=== PATIENT | female | born 1985 | race Caucasian/White ===

== ENCOUNTER 2021-06-05 16:08 | Emergency (ER) | payer MEDICARE, MEDICAID, SELFPAY ==
[2021-06-05 16:28] VITALS: BP 117/77; PULSE 77; RESP 16; TEMP 36.9; O2SAT 96; BMI 47.2
--- NOTE | 2021-06-05 16:36 | XR_ITS ---
PROCEDURE: XR KNEE LT 3V CLINICAL INDICATION: FALL Posttraumatic pain COMPARISON: No exams were available for comparison FINDINGS: No fracture or dislocation. No lytic or blastic change. There is normal mineralization. There are mild osteoarthritic changes of the medial compartment Other findings:None. IMPRESSION: Mild osteoarthritis otherwise negative Dictated by: Maynor Jarrett MD 06/05/2021 16:56 Maynor Jarrett MD in [place] 06/05/2021 16:56
[2021-06-05 17:00] VITALS: BP 117/77; PULSE 77; RESP 16; TEMP 36.9; O2SAT 96; BMI 47.2
--- NOTE | 2021-06-05 17:36 | HMH.EDUTC ---
[facility] [place] Clinical Impression: Knee sprain Qualifiers: Encounter type: initial encounter Involved ligament of knee: other ligament Laterality: left Qualified Code(s): S83.8X2A - Sprain of other specified parts of left knee, initial encounter Disposition: Home, Self-Care Condition on Discharge: Good Instructions: How To Perform RICE (Rest, Ice, Compress, Elevate), How to Use Crutches, How to Use a Knee Immobilizer Additional Instructions: *weight bearing as tolerated *RICE, Rest the extremity, Ice 15-20 minutes 3-4 times daily, Compress- wear the joseph wrap as discussed as much as possible to help reduce swelling and pain, Elevate the extremity when at rest *Joseph wrap is for support and help control swelling, use it except in the shower. Be sure that is not to tight but not to loose either *Elevate when resting *Ibuprofen 600-800mg every 6-8 hours as needed for pain an inflammation. If need something more can take Tylenol in between doses of Ibuprofen to help if your doctor has told you that you can take these medications Immediately follow up with your family doctor for new or worsening of symptoms, or no noticeable improvement over the next 3-5 days Follow up with your Family Doctor for further evaluation and examination and testing Follow up with Orthopedics if needed Referrals: Ade Garza [Primary Care Provider] - As needed Time of Disposition: 17:45 Medical Decision Making - Edward Inquiry Pt receiving controlled substance: No Edward was queried for this patient: No Vital Signs: 06/05/21 16:28 06/05/21 17:00 Temperature 98.4 F 98.4 F Temperature Source Oral Oral Pulse Rate [Left Radial] 77 77 Respiratory Rate 16 16 Blood Pressure [Left Arm] 117/77 117/77 Blood Pressure Mean [Left Arm] 90 90 Blood Pressure Source [Left Arm] Automatic Cuff Automatic Cuff Blood Pressure Position [Left Arm] Sitting Sitting 02 Sat by Pulse Oximetry 96 96 Oxygen Delivery Method Room Air Room Air - Radiology Data #1 Image(s): Knee Image Reviewed: Yes I have reviewed radiologist's interpretation IMPRESSION: Mild osteoarthritis otherwise negative [facility] [place] - General Stated complaint: ao 0/30 injured l knee Time Seen by Provider: 06/05/21 17:36 Mode of Arrival: Ambulatory Source of Information: Patient Limitations: No Limitations Description of Symptoms (Recalled from Triage Doc. by RN): Pt c/o L knee pain r/t fall yesterday. Pt reports pain is worse when bearing weight. HEENT Symptoms (Recalled from RN notes): No Resp Symptoms (Recalled from RN notes): No Skin Symptoms (Recalled from RN notes): No MS Symptoms (Recalled from RN notes): Yes Functional Status (Recalled from RN notes): WNL - History of Present Illness Provider Complaint: Patient states that she was fishing yesterday when she was walking on rocks and slipped and fell and twisted left knee State that ever since she has had some swelling and pain in it when she goes to walk States that she came in to get it checked this evening when she was still having pain with walking - Related Data Previous Rx's Medication Instructions Recorded atorvastatin 10 mg tablet 10 mg PO DAILY #30 tab 11/30/19 hydrochlorothiazide 12.5 mg tablet 12.5 mg PO DAILY #30 tab 11/30/19 levothyroxine 50 mcg tablet 50 mcg PO DAILY #30 tab 11/30/19 naproxen 500 mg tablet 500 mg PO BID 30 Days #60 tab 11/30/19 prednisone 20 mg tablet 20 mg PO BID 5 Days #10 tab 11/30/19 Allergies Allergy/AdvReac Type Severity Reaction Status Date / Time codeine Allergy Intermediate Verified 11/30/19 13:38 vancomycin Allergy Intermediate Verified 11/30/19 13:38 SEAFOOD Allergy Mild Uncoded 11/30/19 13:38 PCN (PENICILLIN) Allergy Unknown I-RASH Uncoded 11/30/19 13:38 - Worker's Comp Is this a Worker's Comp case?: No H History - Hepatitis A Screen Drug use history?: No High risk sexual behaviors?: No History of sexually transmitted infection?: No Currently employed?: No [employer]
[2021-06-05 18:00] VITALS: BP 117/77; PULSE 77; RESP 16; TEMP 36.9; O2SAT 96
== END 2021-06-05 18:05 | disposition home or self-care (01) ==
PROVIDERS: Emergency Provider Nurse Practitioner; PCP Nurse Practitioner Family
DX: S83.8X2A Sprain of other specified parts of left knee, initial encounter (principal); W01.0XXA Fall on same level from slipping, tripping and stumbling without subsequent striking against object, initial encounter; Y92.89 Other specified places as the place of occurrence of the external cause; I10 Essential (primary) hypertension; F41.8 Other specified anxiety disorders; E78.5 Hyperlipidemia, unspecified; E03.9 Hypothyroidism, unspecified; Z79.899 Other long term (current) drug therapy
CPT/HCPCS: 29505; G0463; 73562; 99202

== ENCOUNTER 2021-09-30 14:18 | Emergency (ER) | payer MEDICARE, MEDICAID, SELFPAY ==
[2021-09-30 15:40] VITALS: BP 140/84; PULSE 77; RESP 21; TEMP 37; O2SAT 97; BMI 44.1
[2021-09-30 16:06] LABS: UTC Strep Screen (Rapid) Negative (Negative)
--- NOTE | 2021-09-30 16:18 | HMH.EDUTC ---
[facility] [place] Clinical Impression: Ringworm Disposition: Home, Self-Care Condition on Discharge: Good Instructions: DI for Ringworm Additional Instructions: covid swab was sent to lab, call tomorrow for results. self isolate until test results are known to be negative No sign of a bacterial infection. Likely viral. Viruses can take 7-14 days to run their course. Nasal saline and bulb syringe or nose Leatha to remove nasal drainage to help with nasal congestion. Hard to eat, drink, sleep with nasal congestion so important to keep this cleaned out. Monitor temp. Tylenol or Motrin as needed for pain or fever Encourage fluids, water, Gatorade, Powerade, Pedialyte if infant/toddler/child Warm salt water gargles Warm fluids Sore throat lozenges Sleep elevated Humidifier/vaporizer Follow-up immediately for new or worsening symptoms or no noticeable improvement over the next 48-72 hours. contact precautions- apply cream and wash hands Prescriptions: Clotrimazole [Lotrimin AF] 24 gm TP BID 14 Days #24 gm Prescription Printed Referrals: Provider,Referral, MD [Primary Care Provider] - Time of Disposition: 16:38 Medical Decision Making - Edward Inquiry Pt receiving controlled substance: No Vital Signs: 09/30/21 15:40 Temperature 98.6 F Temperature Source Oral Pulse Rate [Right Brachial] 77 Respiratory Rate 21 Blood Pressure [Right Arm] 140/84 Blood Pressure Mean [Right Arm] 102 Blood Pressure Source [Right Arm] Automatic Cuff Blood Pressure Position [Right Arm] Sitting 02 Sat by Pulse Oximetry 97 Oxygen Delivery Method Room Air - Lab Data Lab Results 09/30/21 15:53: Strep Scn Rapid Clinic Negative Orders (Tests/Meds): ORDERS Category Date Time Status Covid-19 Nasal PCR ([facility]) Routine Lab 09/30/21 16:25 Received Strep Screen Confirmation Stat Micro 09/30/21 15:53 Received [facility] [place] - General Chief complaint: [facility] Stated complaint: sore throat, cough Time Seen by Provider: 09/30/21 16:18 Mode of Arrival: Ambulatory Source of Information: Patient Limitations: No Limitations Description of Symptoms (Recalled from Triage Doc. by RN): 36 yr old female presents for C/O COUGH, SORE THROAT, NAUSEA, DIARRHEA, AND RASH TO RIGHT AXILLA and left lower leg X 1 WEEK, mom has flu HEENT Symptoms (Recalled from RN notes): Yes Resp Symptoms (Recalled from RN notes): Yes Skin Symptoms (Recalled from RN notes): No MS Symptoms (Recalled from RN notes): No Functional Status (Recalled from RN notes): WNL - Related Data Previous Rx's Medication Instructions Recorded atorvastatin 10 mg tablet 10 mg PO DAILY #30 tab 11/30/19 hydrochlorothiazide 12.5 mg tablet 12.5 mg PO DAILY #30 tab 11/30/19 levothyroxine 50 mcg tablet 50 mcg PO DAILY #30 tab 11/30/19 naproxen 500 mg tablet 500 mg PO BID 30 Days #60 tab 11/30/19 prednisone 20 mg tablet 20 mg PO BID 5 Days #10 tab 11/30/19 Clotrimazole [Lotrimin AF] 24 gm TP BID 14 Days #24 gm 09/30/21 Allergies Allergy/AdvReac Type Severity Reaction Status Date / Time codeine Allergy Intermediate Verified 11/30/19 13:38 vancomycin Allergy Intermediate Verified 11/30/19 13:38 Fish Containing Products Allergy Verified 09/30/21 16:02 fish derived Allergy Verified 09/30/21 16:02 Penicillins Allergy Verified 09/30/21 16:02 - Worker's Comp Is this a Worker's Comp case?: No [facility] History - Hepatitis A Screen Drug use history?: No High risk sexual behaviors?: No History of sexually transmitted infection?: No Currently employed?: No Childcare worker?: No Do you have indoor plumbing?: Yes Do you have electricity?: Yes Attestation statement:: This patient has been screened for Hepatitis A risk factors. I have reviewed the patient's past medical history: Yes Medical History: Reports:: Anxiety, Asthma, Chronic Obstructive Pulmonary Disease (COPD), Depression, Hyperlipidemia, Hypertension Denies:: Diabetes Mellitus Type 1, Diabetes Me
[2021-09-30 16:42] LABS: UTC Influenza A Antigen Negative (Negative); UTC Influenza B Antigen Negative (Negative)
[2021-09-30 16:44] VITALS: BP 140/84; PULSE 77; RESP 21; TEMP 37; O2SAT 97
== END 2021-09-30 16:48 | disposition home or self-care (01) ==
PROVIDERS: Emergency Provider Nurse Practitioner Family
DX: B35.9 Dermatophytosis, unspecified (principal); R05.1 Acute cough; F41.8 Other specified anxiety disorders; I10 Essential (primary) hypertension; E78.5 Hyperlipidemia, unspecified; Z20.822 Contact with and (suspected) exposure to COVID-19
CPT/HCPCS: G0463; 87804; 87880; 99203; C9803; U0003; U0005

== ENCOUNTER 2021-12-11 14:35 | Emergency (ER) | payer MEDICARE, MEDICAID, SELFPAY ==
[2021-12-11 14:36] VITALS: BP 132/77; PULSE 82; RESP 16; TEMP 36.8; O2SAT 98; BMI 42.3
[2021-12-11 14:47] VITALS: BMI 33.3
--- NOTE | 2021-12-11 14:48 | XR_ITS ---
FINAL REPORT CLINICAL HISTORY: pain/injury. pain on ulnar aspect of wrist. FINDINGS: 3 views of the left wrist were obtained. There is no acute fracture or dislocation. The joint spaces are intact. There is no soft tissue abnormality. IMPRESSION: No acute abnormality. Reviewed, Interpreted and Dictated by Remy Corbin III, MD Transcribed by Say Person Authenticated by Remy Corbin III, MD on 12/11/2021 03:34:55 PM [facility]
--- NOTE | 2021-12-11 15:51 | HMH.EDUTC ---
[facility] [place] Clinical Impression: Left wrist tendonitis Disposition: Home, Self-Care Condition on Discharge: Good Instructions: DI for Tendinitis Additional Instructions: Rest the extremity, apply ice for 15 minutes as tolerated three or four times per day,, Elevate the extremity as tolerated while you are resting. Take ibuprofen for pain. I sent in a prescription to your pharmacy. Follow up with Dr. Ritter (orthopedics). Sometimes there can be fractures that don't show up well on the first set of x-rays. So, you should follow up if you continue to have symptoms. I put in a referral but you need to call his office and schedule an appointment. Follow up with your regular doctor. GO TO THE ER FOR ANY WORSENING SYMPTOMS Prescriptions: Ibuprofen [Ibuprofen 800mg Tablet] 800 mg PO Q8HP PRN #30 tab PRN Reason: Moderate Pain Transmission Status: Received by [facility] Drug Referrals: Ade Garza [Primary Care Provider] - Klever Ritter MD [Staff Physician] - Time of Disposition: 16:24 Medical Decision Making - Medical Records Medical records reviewed: No: I reviewed the patient's medical records. - Edward Inquiry Pt receiving controlled substance: No Vital Signs: 12/11/21 14:36 12/11/21 16:26 Temperature 98.2 F 97.9 F Temperature Source Oral Oral Pulse Rate 80 Pulse Rate [Right] 82 Respiratory Rate 16 16 Blood Pressure 132/70 Blood Pressure [Right Arm] 132/77 Blood Pressure Mean [Right Arm] 95 Blood Pressure Source [Right Arm] Automatic Cuff Blood Pressure Position [Right Arm] Sitting 02 Sat by Pulse Oximetry 98 Oxygen Delivery Method Room Air Room Air - Radiology Data #1 Image(s): Wrist Image Reviewed: Yes I reviewed the patient's radiology image, Yes I have reviewed radiologist's interpretation Preliminary Findings: Normal/NAD, No Fracture Seen FINAL REPORT CLINICAL HISTORY: pain/injury. pain on ulnar aspect of wrist. FINDINGS: 3 views of the left wrist were obtained. There is no acute fracture or dislocation. The joint spaces are intact. There is no soft tissue abnormality. IMPRESSION: No acute abnormality. Reviewed, Interpreted and Dictated by Remy Corbin III, MD Transcribed by Say Person Authenticated by Remy Corbin III, MD on 12/11/2021 03:34:55 PM [facility] HPI - General Stated complaint: left wrist pain, no accident Time Seen by Provider: 12/11/21 15:51 Mode of Arrival: Ambulatory Source of Information: Patient Limitations: No Limitations Description of Symptoms (Recalled from Triage Doc. by RN): PT advises she has been ppicking up stuff today and now her left wrist is hurting, throbbing. HEENT Symptoms (Recalled from RN notes): No Resp Symptoms (Recalled from RN notes): No Skin Symptoms (Recalled from RN notes): No MS Symptoms (Recalled from RN notes): Yes (left wrist pain) Functional Status (Recalled from RN notes): na - History of Present Illness Provider Complaint: She states that she has had left wrist pain for the past 3 days. She denies any known injury. - Related Data Previous Rx's Medication Instructions Recorded atorvastatin 10 mg tablet 10 mg PO DAILY #30 tab 11/30/19 hydrochlorothiazide 12.5 mg tablet 12.5 mg PO DAILY #30 tab 11/30/19 levothyroxine 50 mcg tablet 50 mcg PO DAILY #30 tab 11/30/19 naproxen 500 mg tablet 500 mg PO BID 30 Days #60 tab 11/30/19 prednisone 20 mg tablet 20 mg PO BID 5 Days #10 tab 11/30/19 Benzonatate [Benzonatate 100mg 100 mg PO BID PRN 7 Days #14 cap 09/30/21 cap] Clotrimazole [Lotrimin AF] 24 gm TP BID 14 Days #24 gm 09/30/21 Ibuprofen [Ibuprofen 800mg 800 mg PO Q8HP PRN #30 tab 12/11/21 Tablet] Allergies Allergy/AdvReac Type Severity Reaction Status Date / Time codeine Allergy Intermediate Verified 11/30/19 13:38 vancomycin Allergy Intermediate Verified 11/30/19 13:38 Fish Containing Products Allergy Verified 09/30/21 16:02 fish derive
[2021-12-11 16:26] VITALS: BP 132/70; PULSE 80; RESP 16; TEMP 36.6; O2SAT 98
== END 2021-12-11 16:27 | disposition home or self-care (01) ==
PROVIDERS: Emergency Provider Nurse Practitioner Family; PCP Nurse Practitioner Family
DX: M65.832 Other synovitis and tenosynovitis, left forearm (principal); F41.8 Other specified anxiety disorders; E78.5 Hyperlipidemia, unspecified; I10 Essential (primary) hypertension; E03.9 Hypothyroidism, unspecified; J44.9 Chronic obstructive pulmonary disease, unspecified
CPT/HCPCS: 29125; G0463; 73110; 99212

== ENCOUNTER 2022-07-28 17:58 | Observation (INO) | payer MEDICARE, MEDICAID, SELFPAY ==
[2022-07-28] VITALS (16 sets, daily range): BP systolic 121–145; BP diastolic 43–103; PULSE 70–87; RESP 16–20; TEMP 36.6–43; O2SAT 95–99; BMI 37.4
--- NOTE | 2022-07-28 18:02 | PC.NURSE ---
PT PROVIDING URINE SPECIMEN AT THIS TIME
--- NOTE | 2022-07-28 18:03 | PC.NURSE ---
ED MD AT BEDSIDE
--- NOTE | 2022-07-28 18:07 | CT_ITS ---
PROCEDURE INFORMATION: Exam: CT Abdomen And Pelvis With Contrast Exam date and time: 07/28/2022 6:43 PM Age: 37 years old Clinical indication: Abdominal pain; Generalized; Prior surgery; Surgery date: 6+ months; Surgery type: Gb c sections; Additional info: Abd pain, acute onset TECHNIQUE: Imaging protocol: Computed tomography of the abdomen and pelvis with contrast. Radiation optimization: All CT scans at this facility use at least one of these dose optimization techniques: automated exposure control; mA and/or kV adjustment per patient size (includes targeted exams where dose is matched to clinical indication); or iterative reconstruction. Contrast material: ISOVUE; Contrast volume: 75 ml; Contrast route: IV; COMPARISON: No relevant prior studies available. FINDINGS: Liver: Possible hepatic steatosis. Gallbladder and bile ducts: Gallbladder is absent. Pancreas: Normal. No ductal dilation. Spleen: Normal. No splenomegaly. Adrenal glands: Normal. No mass. Kidneys and ureters: Low attenuation renal lesions measuring up to 12 mm in diameter are incompletely characterized, but are likely cysts. No followup imaging is warranted. Stomach and bowel: Mildly dilated segments of small bowel suggest mild ileus. Colon is collapsed. Appendix: The appendix is obstructed by a calcified appendicolith at the base. The appendix measures 1.5 cm in diameter and there is periappendiceal inflammation. Intraperitoneal space: Small amount of free fluid in the abdomen and pelvis. Vasculature: Unremarkable. No abdominal aortic aneurysm. Lymph nodes: Unremarkable. No enlarged lymph nodes. Urinary bladder: Unremarkable as visualized. Reproductive: Unremarkable as visualized. Bones/joints: Chronic bilateral sacroiliitis. Soft tissues: Tiny fat containing umbilical hernia. Other findings: Stigmata of old granulomatous disease. IMPRESSION: 1. Acute appendicitis without abscess. 2. THIS REPORT CONTAINS FINDINGS THAT MAY BE CRITICAL TO PATIENT CARE. The findings were verbally communicated via telephone conference with Magi Gates at 7:08 PM EDT on 07/28/2022. The findings were acknowledged and understood. COMMENTS: Consistent with the [employer]'s Incidental Findings Committee white paper (J Am Sonny Radiol 2018): Any incidental renal lesion less than 1 cm or classified as too small to characterize, or any incidental cystic renal lesion characterized as simple-appearing, is likely benign. No follow-up imaging is recommended for these lesions per consensus recommendations based on imaging criteria.
--- NOTE | 2022-07-28 18:09 | HMH.EDABDPAI ---
Discharge Plan Disposition Patient Disposition: Home, Self-Care Condition: Good Prescriptions Prescriptions: New ondansetron 4 mg tablet,disintegrating 4 mg PO DAILY PRN (Reason: nausea and vomiting) 5 Days Qty: 20 0RF cefdinir 300 mg capsule 300 mg PO Q12H 10 Days Qty: 20 0RF No Action levothyroxine 50 mcg tablet 50 mcg PO DAILY Qty: 30 1RF hydrochlorothiazide 12.5 mg tablet 12.5 mg PO DAILY Qty: 30 1RF atorvastatin 10 mg tablet 10 mg PO DAILY Qty: 30 1RF prednisone 20 mg tablet 20 mg PO BID 5 Days Qty: 10 0RF naproxen 500 mg tablet 500 mg PO BID 30 Days Qty: 60 0RF clotrimazole 12 GM cream 24 gm TP BID 14 Days Qty: 24 0RF Rx Instructions: apply to leg and under arm benzonatate 100 MG capsule 100 mg PO BID PRN (Reason: Cough) 7 Days Qty: 14 0RF ibuprofen 800 MG tablet 800 mg PO Q8HP PRN (Reason: Moderate Pain) Qty: 30 0RF Referrals Follow up/Referrals: Ade Garza [Primary Care Provider] - See instructions Activity Restrictions/Add. Instructions Additional Instructions/Restrictions: Please follow-up with your primary care physician in the next 2 to 3 days for further management. Please utilize your antibiotic as prescribed. Please return for any worsening symptoms or symptoms that do not improve. You have also been prescribed Zofran please take as prescribed. Clinical Impressions Clinical Impression: UTI (urinary tract infection), Gastritis Instructions Patient Instructions: Acute Abdominal Pain Print Language Print Language: Arabic Discharge ED Provider: Magi Gates Abdominal Pain HPI General Chief Complaint: Abdominal Pain Stated Complaint: ADM PAIN Time Seen by Provider: 07/28/22 18:09 Mode of Arrival: Ambulatory Source of Information: Patient Limitations: No Limitations History of Present Illness HPI narrative: Miss snowden is a 37 yo female w/ no significant PMH presenting to the emergency department for epigastric and RUQ abd pain which started acutely today. Patient denies any N/V. No bowel changes, urinary sx. No fevers, cough, congestion or other infectious like symptoms. No recent trauma to the abdomen. MD complaint: abdominal pain Onset (ago): hour(s) Consistency: constant Location: RUQ and epigastric Severity: moderate Quality: sharp Radiation: none Migration to: no migration Relieving factors: nothing Exacerbating factors: nothing Associated symptoms: denies other symptoms Related Data Previous Rx's Medication Instructions Recorded atorvastatin 10 mg tablet 10 mg PO DAILY Cholesterol #30 tabs 11/30/19 hydrochlorothiazide 12.5 mg tablet 12.5 mg PO DAILY Hypertension #30 11/30/19 tabs levothyroxine 50 mcg tablet 50 mcg PO DAILY THYROID #30 tabs 11/30/19 naproxen 500 mg tablet 500 mg PO BID 30 days #60 tabs 11/30/19 prednisone 20 mg tablet 20 mg PO BID 5 days #10 tabs 11/30/19 benzonatate 100 mg capsule 100 mg PO BID PRN Cough 7 days #14 09/30/21 caps clotrimazole 1 % topical cream 24 gm TP BID 14 days ##24 09/30/21 ibuprofen 800 mg tablet 800 mg PO Q8HP PRN Moderate Pain 12/11/21 #30 tabs cefdinir 300 mg capsule 300 mg PO Q12H 10 days #20 caps 07/28/22 ondansetron 4 mg disintegrating 4 mg PO DAILY PRN nausea and 07/28/22 tablet vomiting 5 days #20 tabs Allergies Allergy/AdvReac Type Severity Reaction Status Date / Time codeine Allergy Intermediate Verified 11/30/19 13:38 vancomycin Allergy Intermediate Verified 11/30/19 13:38 Fish Containing Products Allergy Verified 09/30/21 16:02 fish derived Allergy Verified 09/30/21 16:02 Penicillins Allergy Verified 09/30/21 16:02 [facility] Medical History (Updated 07/28/22 @ 19:00 by Magi Gates MD) Anxiety and depression Hypertension Thyroid activity decreased Surgical History (Updated 07/28/22 @ 18:20 by Karine Chapin, RN) H/O section History of cholecystectomy Social History (Updated 07/28/22 @ 18:29 by Karine Bonilla
[2022-07-28 18:11] LABS: Microscopic, Urine URINE MICROSCOPIC (MICROSCOPIC)
[2022-07-28 18:22] LABS: Appearance,Urine CLOUDY (Clear); Bilirubin,Urine Negative (Negative); Blood, Urine TRACE-I (Negative); Color,Urine YELLOW (Yellow); Glucose,Urine (UA) Negative (Negative); Ketones,Urine Negative (Negative); Leukocyte Esterase,Urine 3+ (Negative); Nitrate,Urine Negative (Negative); PH,Urine 6.5 (5.0-8.5); Protein,Urine Negative (Negative); Urobilinogen,Urine 0.2 EU/dl (0.2)
[2022-07-28 18:26] LABS: Amorphous Sediment,Urine 1+ /lpf; WBC,Urine 20-50 #/hpf (0-3)
[2022-07-28 18:30] LABS: Chloride 103 mmol/L (98-107)
[2022-07-28 18:31] LABS: Potassium 3.8 mmoL/L (3.5-5.1); Sodium 137 mmol/L (136-145)
[2022-07-28 18:33] LABS: Alanine Aminotransferase 38 U/L (12-78); Alkaline Phosphatase 58 U/L (38-126); Anion Gap 11.8 mEq/L (5-15); Aspartate Amino Transferase 48 U/L (14-36); Bilirubin,Total 0.7 mg/dl (0.2-1.3); Blood Urea Nitrogen 3 mg/dl (7-17); Carbon Dioxide 26 mmol/L (22.0-30.0); Creatinine Clearance Estimated 153 mL/min (50-200); Estimated Glomerular Filt Rate 93 ml/min (>60); GFR (African American) 113 ML/MIN (>60); Lipase 17 U/L (23-300)
[2022-07-28 18:34] LABS: Albumin Level 4.3 g/dl (3.5-5.0); Albumin/Globulin Ratio 1.4 (1.1-1.8); Calcium 8.8 mg/dl (8.4-10.2); Globulin 3.1 g/dL (1.3-3.2); Glucose 97 mg/dl (74-100); Total Protein,Serum 7.4 g/dl (6.3-8.2)
[2022-07-28 18:38] LABS: HCG Qualitative, Serum Negative (Negative)
--- NOTE | 2022-07-28 18:38 | PC.NURSE ---
PT MEDICATED PER EMAR, UPDATED ON POC AND GIVEN WARM BLANKET. NO NEEDS AT THIS TIME. S.O. AT BEDSIDE
--- NOTE | 2022-07-28 18:45 | PC.NURSE ---
PT TO CT AT THIS TIME
[2022-07-28 18:50] LABS: Basophils # 0.1 K/mm3 (0-0.2); Basophils % 0.9 % (0.1-2.0); Eosinophils # 0.6 K/mm3 (0.0-0.4); Eosinophils % 5.6 % (0.1-12.0); Hemoglobin 12.4 g/dL (12.2-16.2); Lymphocytes # 2.1 K/mm3 (0.7-4.5); Lymphocytes % 20.7 % (10-50); Mean Corpuscular HGB Conc 33.5 g/dL (31.8-35.4); Mean Corpuscular Hemoglobin 29.3 pg (27.0-31.2); Mean Corpuscular Volume 87.2 fl (81-99); Mean Platelet Volume 8.7 fl (7.4-10.4); Monocytes # 0.4 K/mm3 (0.1-1.0); Monocytes % 4.1 % (1.7-9.3); Neutrophils % 68.7 % (37.0-80.0); Platelet Count 273 K/mm3 (142-424); Red Blood Count 4.24 M/mm3 (4.20-5.40); Red Cell Distribution Width 13.5 % (11.5-17.5); White Blood Count 10.1 K/mm3 (4.8-10.8)
--- NOTE | 2022-07-28 18:58 | PC.NURSE ---
PT RETURNED FROM CT
--- NOTE | 2022-07-28 19:10 | PC.NURSE ---
Dr. Gates speaking with AD
--- NOTE | 2022-07-28 19:10 | PC.NURSE ---
Dr. Ragsdale paged
--- NOTE | 2022-07-28 19:22 | PC.NURSE ---
Dr. Ragsdale paged again
--- NOTE | 2022-07-28 19:29 | PC.NURSE ---
Dr. Gates speaking with Dr. Ragsdale
--- NOTE | 2022-07-28 19:34 | PC.NURSE ---
Called [facility] and let know that Dr. Ragsdale will need surgery team and then d/c from pacu
[2022-07-28 19:37] LABS: Coronavirus 19, PCR Not Detected (NotDetected); Influenza A, PCR Not Detected (NotDetected); Influenza B, PCR Not Detected (NotDetected)
--- NOTE | 2022-07-28 19:54 | PC.NURSE ---
Pt removed all jewelry and placed in specimen cup with pt label. All clothing removed and placed in pt belonging bag with pt label. Pt changed in to gown, and allergy bracelet placed on left arm.
--- NOTE | 2022-07-28 21:35 | PC.NURSE ---
Rechecked pt condition and updated her we are waiting for the surgeon. No needs or complaints voiced.
--- NOTE | 2022-07-28 21:46 | P.PN_ITS ---
[facility] Medical History Anxiety and depression Hypertension Thyroid activity decreased Surgical History H/O section History of cholecystectomy Social History Smoking Status: Never smoker alcohol intake: never substance use type: denies use current occupational status: unemployed Travel in the last 8 weeks: None [facility] Anesthesia Checklist Patient Identification Patient Identification: Arm Band and Verbal (Name & ) Structural Data Admitted From: Emergency Dept Planned Operative Procedure/s: Lap. appy Consent for Planned Operative Procedure(s) Verified: Yes NPO Status Verified Time NPO: 00:00 Airway Assessment C-Spine Mobility Assessed: Yes TMJ Mobility Assessed: Yes Dentition: Good Dentition Neurological Assessment Level of Consciousness: Awake Hx Seizures: No Numbness or tingling in extremities: No Anesthesia Plan Anesthesia Risk discussed: Yes Anesthesia Plan: Verified ASA Class: II Anesthesia Type: General
--- NOTE | 2022-07-28 21:50 | PC.NURSE ---
Dr. Ragsdale at BS
--- NOTE | 2022-07-28 22:02 | PC.NURSE ---
Dr Ragsdale states he will keep pt overnight & adx. House notified for bed assignment. Hospitalist notified for admission. She states she will see pt post op on 2nd floor
--- NOTE | 2022-07-28 22:05 | PC.NURSE ---
Dr. Ragsdale states I want to use Clindamycin and not rocephin .
--- NOTE | 2022-07-28 23:04 | EXP.ANES.I ---
[facility] Anesthesia Record Part I Anesthesia Record I Intake, IV Amount: 600 Estimated blood loss (mL): 20 Urine output (mL): 0 Blood Pressure: 128/74 SaO2: 95 Pulse Rate: 70 Respiratory Rate: 16 Temperature: 99.7 F Patient is:: Awake and Drowsy Stable to PACU at:: 23:00
--- NOTE | 2022-07-28 23:31 | PC.NURSE ---
[id number]-detailed report called to M.KingRN [id number]-pt transported to 2nd floor via hospital bed per staff with bijan rails up, pt in stable condition upon discharge from pacu, vss
--- NOTE | 2022-07-28 23:50 | EXP.HP ---
History of Present Illness *Admission Date: 07/28/22 *Reason for visit:: Abdominal Pain/Acute Pancreatitis *History of present illness: Ms. Hernandez is a 37-year-old female with a past medical history that is positive for HTN, Hyperlipidemia and Hypothyroidism. She presented to [facility] today, 07/28/2022 secondary to acute abdominal pain that started a few hours prior to presentation that was not associated with nausea, vomiting, diarrhea, constipation, fevers, body aches or chills. CT of the abdomen and pelvis showed findings consistent with acute appendicitis with no concern for fluid collection or abscess. The patient was given Rocephin and Flagyl pre-operatively and was taken to the OR and underwent a laproscopic appendectomy with no complications. The patient was seen post-operatively on the medical surgical floor. Family were at bedside, the patient was complaining of some generalized pain at the surgical site and was asking to eat. The patient will be monitored overnight, if does well the plan is for discharge to home in the morning. The plan of care was discussed with the patient and family at bedside. All verbalized understanding and agreement with the plan of care. [facility] Medical History (Updated 07/29/22 @ 01:14 by Janay Mai RN) Allergies Anxiety and depression Asthma Hypertension Overactive bladder Thyroid activity decreased Surgical History H/O section History of cholecystectomy Family History (Updated 07/29/22 @ 01:19 by Janay Mai RN) Family history of hypertension Social History (Updated 07/29/22 @ 01:14 by Janay Mai RN) Smoking Status: Never smoker alcohol intake: never substance use type: denies use current occupational status: unemployed Travel in the last 8 weeks: None Review of Systems Review of Systems Review of systems:: pertinent systems reviewed and negative unless documented below Constitutional Constitutional: Reports system reviewed and no additional complaints, except as documented Eyes Eyes: Reports system reviewed and no additional complaints, except as documented ENT Ears, Nose, Mouth, and Throat: Reports system reviewed and no additional complaints, except as documented *Cardiovascular Cardiovascular: Reports system reviewed and no additional complaints, except as documented *Respiratory Respiratory: Reports system reviewed and no additional complaints, except as documented *Gastrointestinal Comments: RUQ and epigastric abdominal pain *Genitourinary Genitourinary: Reports system reviewed and no additional complaints, except as documented *Musculoskeletal Musculoskeletal: Reports system reviewed and no additional complaints, except as documented Integumentary/Breasts Skin/Breast: Reports system reviewed and no additional complaints, except as documented *Neurologic Neurologic: Reports system reviewed and no additional complaints, except as documented Psychiatric Psychiatric: Reports system reviewed and no additional complaints, except as documented Endocrine Endocrine: Reports system reviewed and no additional complaints, except as documented Hematologic/Lymphatic Hematologic/Lymphatic: Reports system reviewed and no additional complaints, except as documented Allergic/Immunologic Allergic/Immunologic: Reports system reviewed and no additional complaints, except as documented Meds Home Medications and Allergies Home Medications Medication Instructions Recorded Confirmed Type atorvastatin 10 mg tablet 10 mg PO DAILY Cholesterol #30 tabs 11/30/19 07/29/22 Rx hydrochlorothiazide 12.5 mg tablet 12.5 mg PO DAILY Hypertension #30 11/30/19 07/29/22 Rx tabs levothyroxine 50 mcg tablet 50 mcg PO DAILY THYROID #30 tabs 11/30/19 07/29/22 Rx ondansetron 4 mg disintegrating 4 mg PO DAILY PRN nausea and 07/28/22 Rx tablet vomiting 5 days #20 tabs buspirone 15 mg tablet 15 mg P
[2022-07-29] VITALS (10 sets, daily range): BP systolic 124–140; BP diastolic 60–82; PULSE 77–98; RESP 16–20; TEMP 36.6–37.1; O2SAT 95–99; BMI 39.6
--- NOTE | 2022-07-29 00:23 | PC.NURSE ---
PT ARRIVED TO FLOOR FROM OR AT 23:36
--- NOTE | 2022-07-29 04:00 | PC.NURSE ---
Pt presented to ED with ABD pain, was taken to surgery for lap appendectomy. Pt admitted overnight for observation. Pt has c/o of pain twice, since arriving to floor. Medicated per DEC. Called hospitalist for additional orders d/t breakthrough pain. New orders received and carried out by this RN. Patient is resting comfortably now. VSS at this time. Pt is on RA, lungs are CTA. BS active x 4. Pt has 3 lap incisions with dermabond and bandaids. Pt has ambulated with assistance to bathroom. SCDs on. IV infusing per order. Call light in reach. Family at bedside.
[2022-07-29 06:44] LABS: Basophils % 0.2 % (0.1-2.0); Eosinophils % 0.1 % (0.1-12.0); Hematocrit 36.7 % (37.0-47.0); Hemoglobin 12.1 g/dL (12.2-16.2); Lymphocytes # 1.2 K/mm3 (0.7-4.5); Lymphocytes % 6.9 % (10-50); Mean Corpuscular HGB Conc 32.9 g/dL (31.8-35.4); Mean Corpuscular Hemoglobin 29.5 pg (27.0-31.2); Mean Corpuscular Volume 89.4 fl (81-99); Mean Platelet Volume 8.3 fl (7.4-10.4); Monocytes # 0.4 K/mm3 (0.1-1.0); Monocytes % 2.1 % (1.7-9.3); Neutrophils # 15.3 K/mm3 (1.8-7.8); Neutrophils % 90.6 % (37.0-80.0); Platelet Count 263 K/mm3 (142-424); Red Blood Count 4.11 M/mm3 (4.20-5.40); Red Cell Distribution Width 13.5 % (11.5-17.5); White Blood Count 16.9 K/mm3 (4.8-10.8)
[2022-07-29 06:47] LABS: MANUAL DIFFERENTIAL MANUAL DIFFERENTIAL (MANUAL DIFF)
[2022-07-29 06:48] LABS: Chloride 102 mmol/L (98-107); Sodium 138 mmol/L (136-145)
[2022-07-29 06:49] LABS: Potassium 3.6 mmoL/L (3.5-5.1)
[2022-07-29 06:51] LABS: Alanine Aminotransferase 41 U/L (12-78); Albumin/Globulin Ratio 1.4 (1.1-1.8); Alkaline Phosphatase 66 U/L (38-126); Anion Gap 15.6 mEq/L (5-15); Aspartate Amino Transferase 37 U/L (14-36); Bilirubin,Total 0.6 mg/dl (0.2-1.3); Blood Urea Nitrogen 2 mg/dl (7-17); Calcium 8.5 mg/dl (8.4-10.2); Carbon Dioxide 24 mmol/L (22.0-30.0); Creatinine Clearance Estimated 162 mL/min (50-200); Estimated Glomerular Filt Rate 93 ml/min (>60); GFR (African American) 113 ML/MIN (>60); Globulin 2.9 g/dL (1.3-3.2); Glucose 225 mg/dl (74-100); Total Protein,Serum 6.9 g/dl (6.3-8.2)
[2022-07-29 07:10] LABS: Lymphocytes % 8 % (10-50); Monocytes % 6 % (2-9); Neutrophils % 86 % (42-76); Total Cells Counted 100
[2022-07-29 07:11] LABS: Platelet Estimate Normal; RBC Morphology Normal
--- NOTE | 2022-07-29 07:17 | HMH.PHAINT1 ---
Pharmacy Intervention Comments: Home medication reconciliation completed using outpatient pharmacy fill history.
--- NOTE | 2022-07-29 08:27 | P.PNANES_ITS ---
[facility] Anesthesia Record Part II Anesthesia Record Part II Discharge Time: 23:30 Destination: Second Floor PACU nurse assessment reviewed?: Yes Patient Condition:: Good Anesthesia Complications:: None Swallowing reflex intact?: Yes Cyanosis?: No Blood Pressure: 134/74 Pulse Rate: 80 Temperature: 97.8 F Mental Status: Alert & Oriented Pain level:: 3 Nausea and/or vomitting:: None Intake, IV Amount: 0
--- NOTE | 2022-07-29 09:43 | CARE MANAGER ---
Patient admitted for appendicitis. Surgery performed should DC today. Patient in obs status.
--- NOTE | 2022-07-29 15:56 | EXP.DC.SUM ---
General Admission date:: 07/28/22 Discharge date: 07/29/22 HPI HPI HPI: Ms. Hernandez is a 37-year-old female with a past medical history that is positive for HTN, Hyperlipidemia and Hypothyroidism. She presented to [facility] today, 07/28/2022 secondary to acute abdominal pain that started a few hours prior to presentation that was not associated with nausea, vomiting, diarrhea, constipation, fevers, body aches or chills. CT of the abdomen and pelvis showed findings consistent with acute appendicitis with no concern for fluid collection or abscess. The patient was given Rocephin and Flagyl pre-operatively and was taken to the OR and underwent a laproscopic appendectomy with no complications. The patient was seen post-operatively on the medical surgical floor. Family were at bedside, the patient was complaining of some generalized pain at the surgical site and was asking to eat. The patient will be monitored overnight, if does well the plan is for discharge to home in the morning. The plan of care was discussed with the patient and family at bedside. All verbalized understanding and agreement with the plan of care. Hospital Course Hospital Course Hospital Course: Admitted to medicine post appendectomy for observation and IV antibiotics. Did well tolerating clear liquid diet. Pain stable with pain regimen. Patient medically stable for discharge home. We will continue levofloxacin and Flagyl for 5 more days given leukocytosis and tenderness of abdomen. Follow-up with surgery after discharge. Stable at discharge. Voiding independently. Exam Data for Last 24 hours Vital signs and Labs for Last 24 Hours: Temp Pulse Resp BP Pulse Ox 98.1 F 82 20 128/60 96 07/29/22 12:00 07/29/22 12:00 07/29/22 12:00 07/29/22 12:00 07/29/22 12:00 Laboratory Results - last 24 hr 07/28/22 18:07: Urine Color Yellow, Urine Appearance Cloudy, Urine pH 6.5, Ur Specific [place] 1.010, Urine Protein Negative, Urine Glucose (UA) Negative, Urine Ketones Negative, Urine Blood Trace-i, Urine Nitrate Negative, Urine Bilirubin Negative, Urine Urobilinogen 0.2, Ur Leukocyte Esterase 3+ A, Urine RBC 3-5, Urine WBC 20-50, Ur Squamous Epith Cells 5-10, Amorphous Sediment 1+ 07/28/22 18:18: WBC 10.1, RBC 4.24, Hgb 12.4, Hct 37.0, MCV 87.2, MCH 29.3, MCHC 33.5, RDW 13.5, Plt Count 273, MPV 8.7, Neut % (Auto) 68.7, Lymph % (Auto) 20.7, [place] % (Auto) 4.1, Eos % (Auto) 5.6, Baso % (Auto) 0.9, Neut # (Auto) 7.0, Lymph # (Auto) 2.1, [place] # (Auto) 0.4, Eos # (Auto) 0.6 H, Baso # (Auto) 0.1 07/28/22 18:18: Sodium 137, Potassium 3.8, Chloride 103, Carbon Dioxide 26, Anion Gap 11.8, BUN 3 L, Creatinine 0.70, Estimated Creat Clear 153, Estimated GFR 93, Est GFR ( Amer) 113, Glucose 97, Calcium 8.8, Total Bilirubin 0.7, AST 48 H, ALT 38, Alkaline Phosphatase 58, Total Protein 7.4, Albumin 4.3, Globulin 3.1, Albumin/Globulin Ratio 1.4, Lipase 17 L 07/28/22 18:18: Lactate 1.0 07/28/22 18:18: Serum HCG, Qual Negative 07/28/22 19:33: SARS-CoV-2 (PCR) Not detected, Influenza A Untype (PCR) Not detected, Influenza Type B (PCR) Not detected 07/29/22 06:17: WBC 16.9 H D, RBC 4.11 L, Hgb 12.1 L, Hct 36.7 L, MCV 89.4, MCH 29.5, MCHC 32.9, RDW 13.5, Plt Count 263, MPV 8.3, Neut % (Auto) 90.6 H, Lymph % (Auto) 6.9 L, [place] % (Auto) 2.1, Eos % (Auto) 0.1, Baso % (Auto) 0.2, Neut # (Auto) 15.3 H, Lymph # (Auto) 1.2, [place] # (Auto) 0.4, Eos # (Auto) 0.0, Baso # (Auto) 0.0, Total Counted 100, Neutrophils % (Manual) 86 H, Lymphocytes % (Manual) 8 L, Monocytes % (Manual) 6, Platelet Estimate Normal, RBC Morphology Normal 07/29/22 06:17: Sodium 138, Potassium 3.6, Chloride 102, Carbon Dioxide 24, Anion Gap 15.6 H, BUN 2 L D, Creatinine 0.70, Estimated Creat Clear 162, Estimated GFR 93, Est GFR ( Amer) 113, Glucose 225 H D, Calcium 8.5, Total Bilirubin 0.6, AST 37 H, ALT 41, Alkaline Phosphatase 66, Total Protein 6.9, Albumin 4.0, Globulin 2.9, Albumin/Globulin Ratio 1.4
--- NOTE | 2022-07-29 16:01 | EXP.SURG.PN ---
Subjective Narrative: Patient states that she feels better other than some incisional soreness postsurgery. Exam Data for Last 24 hours Vital signs and Labs for Last 24 Hours: Temp Pulse Resp BP Pulse Ox 98.1 F 82 20 128/60 96 07/29/22 12:00 07/29/22 12:00 07/29/22 12:00 07/29/22 12:00 07/29/22 12:00 Laboratory Results - last 24 hr 07/28/22 18:07: Urine Color Yellow, Urine Appearance Cloudy, Urine pH 6.5, Ur Specific [place] 1.010, Urine Protein Negative, Urine Glucose (UA) Negative, Urine Ketones Negative, Urine Blood Trace-i, Urine Nitrate Negative, Urine Bilirubin Negative, Urine Urobilinogen 0.2, Ur Leukocyte Esterase 3+ A, Urine RBC 3-5, Urine WBC 20-50, Ur Squamous Epith Cells 5-10, Amorphous Sediment 1+ 07/28/22 18:18: WBC 10.1, RBC 4.24, Hgb 12.4, Hct 37.0, MCV 87.2, MCH 29.3, MCHC 33.5, RDW 13.5, Plt Count 273, MPV 8.7, Neut % (Auto) 68.7, Lymph % (Auto) 20.7, [place] % (Auto) 4.1, Eos % (Auto) 5.6, Baso % (Auto) 0.9, Neut # (Auto) 7.0, Lymph # (Auto) 2.1, [place] # (Auto) 0.4, Eos # (Auto) 0.6 H, Baso # (Auto) 0.1 07/28/22 18:18: Sodium 137, Potassium 3.8, Chloride 103, Carbon Dioxide 26, Anion Gap 11.8, BUN 3 L, Creatinine 0.70, Estimated Creat Clear 153, Estimated GFR 93, Est GFR ( Amer) 113, Glucose 97, Calcium 8.8, Total Bilirubin 0.7, AST 48 H, ALT 38, Alkaline Phosphatase 58, Total Protein 7.4, Albumin 4.3, Globulin 3.1, Albumin/Globulin Ratio 1.4, Lipase 17 L 07/28/22 18:18: Lactate 1.0 07/28/22 18:18: Serum HCG, Qual Negative 07/28/22 19:33: SARS-CoV-2 (PCR) Not detected, Influenza A Untype (PCR) Not detected, Influenza Type B (PCR) Not detected 07/29/22 06:17: WBC 16.9 H D, RBC 4.11 L, Hgb 12.1 L, Hct 36.7 L, MCV 89.4, MCH 29.5, MCHC 32.9, RDW 13.5, Plt Count 263, MPV 8.3, Neut % (Auto) 90.6 H, Lymph % (Auto) 6.9 L, [place] % (Auto) 2.1, Eos % (Auto) 0.1, Baso % (Auto) 0.2, Neut # (Auto) 15.3 H, Lymph # (Auto) 1.2, [place] # (Auto) 0.4, Eos # (Auto) 0.0, Baso # (Auto) 0.0, Total Counted 100, Neutrophils % (Manual) 86 H, Lymphocytes % (Manual) 8 L, Monocytes % (Manual) 6, Platelet Estimate Normal, RBC Morphology Normal 07/29/22 06:17: Sodium 138, Potassium 3.6, Chloride 102, Carbon Dioxide 24, Anion Gap 15.6 H, BUN 2 L D, Creatinine 0.70, Estimated Creat Clear 162, Estimated GFR 93, Est GFR ( Amer) 113, Glucose 225 H D, Calcium 8.5, Total Bilirubin 0.6, AST 37 H, ALT 41, Alkaline Phosphatase 66, Total Protein 6.9, Albumin 4.0, Globulin 2.9, Albumin/Globulin Ratio 1.4 I & O for Last 24 hours: Intake & Output 07/27/22 07/28/22 07/29/22 07/30/22 11:59 11:59 11:59 11:59 Intake Total 1601 / 1601 240 / 240 Balance 1601 / 1601 240 / 240 Weight 210 lb *Routine Abdominal Exam Abdominal: Present soft Comments: Incisions clean. Progress Note: A&P Assessment and plan (1) Acute appendicitis affecting : Status: Acute (2) Hypertension: Status: Acute (3) Hypothyroidism: Status: Acute (4) Hyperlipidemia: Status: Acute Assessment and Plan Assessment and Plan for All Diagnoses:: Okay for discharge home. Given leukocytosis plan for few days of levofloxacin. Follow-up in the office in 2 weeks.
--- NOTE | 2022-08-01 14:34 | CARE MANAGER ---
Attempted to contact patient x3 related to hospital discharge. Left VM message. KATHIA Dyson
--- NOTE | 2022-08-26 13:57 | EXP.OP.NOTE ---
Date of procedure: 07/28/22 Pre-op Diagnosis:: Acute appendicitis. Post-op Diagnosis:: Same. Procedure performed:: Laparoscopic appendectomy. Surgeon:: Sha Ragsdale MD INTERNAL GRINDER TENDER:: Other Anesthesia: GETA Estimated blood loss (mL): 5 Clinical Note:: Clinical exam and CT consistent with acute appendicitis. Operative findings:: Acutely inflamed appendix. Operative note:: Details of Operation Indications: Ms. Galvez is a 37-year-old female with right lower quadrant abdominal pain. Clinical examination and CT consistent with acute appendicitis. Patient scheduled for laparoscopic appendectomy. All risks, benefits, goals, and alternatives discussed. Patient agreed above-stated procedures. Findings: Acutely inflamed appendix. Operative description: Patient identified. Consent obtained. Brought to the operating room. General endotracheal anesthesia administered. Abdomen prepped and draped. Midline abdominal incision made above the umbilicus. 12 mm trocar placed through the umbilical incision. Abdomen insufflated. Two 5 mm trochars were placed in the lower abdomen. Appendix visualized. Retracted anteriorly. Noted to be acutely inflamed without evidence of rupture. A window was created in these of appendix. The mesoappendix was then divided with harmonic scalpel. The base of the appendix was identified. The base of the appendix was divided with Endo THI stapler. Appendix was delivered to an Endobag. Retrieved through the umbilical port site. Right lower quadrant was irrigated and suctioned. Staple line noted to be intact. Omentum was laid over the appendectomy site. Ports removed. Abdomen desufflated. Umbilical port site was closed at the level of the fascia with interrupted Vicryl suture. Skin closed. Sterile dressing applied. Patient tolerated the procedure well. Transferred to the postanesthetic care unit without surgical or anesthetic complications. Condition: stable Disposition: PACU Specimens:: Appendix. Complications:: None.
== END 2022-07-29 17:29 | disposition home or self-care (01) ==
LOC: ER 20:12 → SDC 22:02 → 2ND 23:43
PROVIDERS: Nurse Practitioner Family; Surgery; Admitting Provider Internal Medicine Adolescent Medicine; Emergency Provider Student in an Organized Health Care Education/Training Program; PCP Nurse Practitioner Family; Visit Provider Internal Medicine Adolescent Medicine
PROC: 0DTJ4ZZ Resection of Appendix, Percutaneous Endoscopic Approach (ICD-10-PCS; CPT 44970; principal; 2022-07-28 22:00)
DX: K35.80 Unspecified acute appendicitis (principal); I10 Essential (primary) hypertension; E03.9 Hypothyroidism, unspecified; E78.5 Hyperlipidemia, unspecified; N39.0 Urinary tract infection, site not specified; Z20.822 Contact with and (suspected) exposure to COVID-19
CPT/HCPCS: 44970; 36415; 74177; 80053; 81001; 83605; 83690; 84703; 85007; 85025; 87086; 87088; 87186; 88304; 99285; C9803; G0378; J0131; J1956; J2405; Q9967; U0003; U0005

== ENCOUNTER → 2022-10-07 12:46 | Outpatient (CLI) | payer MEDICARE, MEDICAID, SELFPAY ==
--- NOTE | 2022-10-07 12:50 | CT_ITS ---
FINAL REPORT TECHNIQUE: Axial images through the abdomen and pelvis was performed by computed tomography. Oral contrast was given. This study was performed with techniques to keep radiation doses as low as reasonably achievable (ALARA). Individualized dose reduction techniques using automated exposure control or adjustment of mA and/or kV according to the patient's size were employed. CLINICAL HISTORY: s/p appendectomy COMPARISON: 07/28/2022 FINDINGS: Abdomen: Lung bases are clear. Liver has an unremarkable CT appearance. The spleen, pancreas and adrenal glands are unremarkable. There are hypodense left renal lesions, probably cysts. The patient is status post cholecystectomy. No bowel obstruction or fluid collection is seen. Pelvis: There has been interval appendectomy. There is no evidence of abscess. No abdominal wall hernia is identified. The uterus is mildly heterogeneous which could be due to fibroids. Pelvic bowel loops are unremarkable. No fluid collection or adenopathy is seen. IMPRESSION: No evidence of abscess or obstruction. Reviewed, Interpreted and Dictated by Rom Vera MD Transcribed by Casie Pavon Authenticated and . [facility]
== END ==
PROVIDERS: PCP Nurse Practitioner Family; Visit Provider Surgery
DX: K37 Unspecified appendicitis (principal)
CPT/HCPCS: 74177; Q9967

== ENCOUNTER 2023-06-30 13:28 | Emergency (ER) | payer MEDICARE, MEDICAID, SELFPAY ==
--- NOTE | 2023-06-30 13:32 | XR_ITS ---
FINAL REPORT CLINICAL HISTORY: stepped on a nail yesterday COMPARISON: None FINDINGS: AP, oblique and lateral views of the left foot were obtained. There is no prior exam for comparison. There is no acute fracture or dislocation. There is mild degenerative change of the metatarsal joints. There is soft tissue edema in the forefoot without evidence of a foreign body. IMPRESSION: Soft tissue edema in the forefoot without evidence of a foreign body. Reviewed, Interpreted and Dictated by Pretty Richards MD Transcribed by Leigha Garcia Authenticated and [facility]
[2023-06-30 13:50] VITALS: BP 186/103; PULSE 83; RESP 19; TEMP 36.8; O2SAT 98; BMI 36.6
[2023-06-30 14:00] VITALS: BMI 36.6
--- NOTE | 2023-06-30 14:13 | EXP.UTC ---
Discharge Plan Disposition Patient Disposition: Home, Self-Care Condition: Good Prescriptions Prescriptions: New clindamycin HCl 300 mg capsule 300 mg PO Q8H 7 Days Qty: 21 0RF No Action levothyroxine 50 mcg tablet 50 mcg PO DAILY Qty: 30 1RF hydrochlorothiazide 12.5 mg tablet 12.5 mg PO DAILY Qty: 30 1RF atorvastatin 10 mg tablet 10 mg PO DAILY Qty: 30 1RF quetiapine 25 mg tablet 25 mg PO BID Patient Comments: TAKE ONE TABLET BY MOUTH TWO times a DAY AT 10 IN THE MORNING AND THREE IN THE EVENING. cetirizine 10 mg tablet 10 mg PO DAILY Patient Comments: TAKE ONE TABLET BY MOUTH EVERY DAY gabapentin 400 mg capsule 400 mg PO TID Patient Comments: TAKE ONE CAPSULE BY MOUTH THREE TIMES DAILY omeprazole 40 mg capsule,delayed release(DR/EC) 40 mg PO DAILY Patient Comments: TAKE ONE CAPSULE BY MOUTH EVERY DAY propranolol 10 mg tablet 10 mg PO TIDP PRN (Reason: Anxiety) Patient Comments: TAKE ONE TABLET BY MOUTH THREE TIMES DAILY NEEDED FOR ANXIETY lithium carbonate 300 mg capsule 300 mg PO TID Patient Comments: TAKE ONE CAPSULE BY MOUTH THREE TIMES DAILY montelukast 10 mg tablet 10 mg PO DAILY Patient Comments: TAKE ONE TABLET BY MOUTH EVERY DAY buspirone 15 mg tablet 15 mg PO BID Patient Comments: TAKE ONE TABLET BY MOUTH TWICE DAILY duloxetine 60 mg capsule,delayed release(DR/EC) 60 mg PO DAILY Patient Comments: TAKE ONE CAPSULE BY MOUTH ONCE DAILY Myrbetriq 50 mg tablet extended release 24 hr 50 mg PO DAILY Patient Comments: tAKE ONE TABLET BY MOUTH DAILY metronidazole 500 mg tablet 500 mg PO TID 5 Days Qty: 15 0RF levofloxacin 750 mg tablet 750 mg PO Q24H 5 Days Qty: 5 0RF Referrals Follow up/Referrals: Provider,Referral, MD [Primary Care Provider] - See instructions Activity Restrictions/Add. Instructions Additional Instructions/Restrictions: Make sure to keep area clean and dry Clean with antibacterial soap and water Take medication as prescribed Keep the wound dry for the first 24 to 48 hours. After this, you can shower Pat the wound dry. Don't soak the wound, such as in a bathtub. . After the first 24 to 48 hours, wash the wound with clean water 2 times a day. Don't use hydrogen peroxide or alcohol, which can slow healing. You may cover the wound with a thin layer of Neosporin and a nonstick bandage. Apply more Neosporin and replace the bandage as needed. Prop up the sore area on pillows anytime you sit or lie down during the next 3 days. Try to keep it above the level of your heart. This helps reduce swelling. Avoid any activity that could cause your wound to get worse. Clinical Impressions Clinical Impression: Puncture wound Instructions Patient Instructions: DI for Puncture Wound Discharge ED Provider[place] Alannah Garcia [facility] [place] General Stated complaint: [id number],stepped on nail,Lt foot pain Mode of Arrival: Ambulatory Source of Information: Patient Limitations: No Limitations Time Seen by Provider: 06/30/23 14:13 Description of Symptoms (Recalled from Triage Doc. by RN): PATIENT C/O PUNCTURE WOUND TO LEFT FOOT AFTER STEPPING ON A NAIL LAST NIGHT HEENT Symptoms (Recalled from RN notes): No Resp Symptoms (Recalled from RN notes): No Skin Symptoms (Recalled from RN notes): Yes MS Symptoms (Recalled from RN notes): No Functional Status (Recalled from RN notes): WNL History of Present Illness Provider Complaint: Patient states that she was walking around outside last night with a pair of slip on shoes and stepped on a radha nail on a board that was laying on the ground and it went into the bottom of her left foot on the pad of the foot States that they cleaned and it and put some peroxide on it and this morning her foot was swollen and sore Unsure when her last tetanus was and worried that it may be getting infected so she c
[2023-06-30 15:07] VITALS: BP 186/103; PULSE 83; RESP 19; TEMP 36.8; O2SAT 98
== END 2023-06-30 15:14 | disposition home or self-care (01) ==
PROVIDERS: Emergency Provider Nurse Practitioner
DX: S91.332A Puncture wound without foreign body, left foot, initial encounter (principal); J45.909 Unspecified asthma, uncomplicated; I10 Essential (primary) hypertension; F41.9 Anxiety disorder, unspecified; F32.A Depression, unspecified; W45.0XXA Nail entering through skin, initial encounter
CPT/HCPCS: 73630; 90715; 96372; 99212; 99214; G0463

== ENCOUNTER 2023-10-10 12:05 | Emergency (ER) | payer MEDICARE, MEDICAID, SELFPAY ==
--- NOTE | 2023-10-10 12:25 | ED_ITS ---
Discharge Plan Disposition Patient Disposition: Home, Self-Care Condition: Good Prescriptions Prescriptions: New methylprednisolone 4 mg Tablets,Dose Pack 4 mg PO DIRECTED 6 Days Qty: 21 0RF Rx Instructions: Take 1 pack as directed for 6 days guaifenesin [Mucinex] 600 mg tablet extended release 12hr 600 - 1,200 mg PO BIDP PRN (Reason: Congestion) Qty: 30 0RF benzonatate [benzonatate] 100 mg capsule 100 mg PO TIDP PRN (Reason: Cough) Qty: 30 0RF cefdinir 300 mg capsule 300 mg PO BID Qty: 20 0RF No Action Elmiron 100 mg capsule 100 mg PO TID Patient Comments: TAKE 1 CAPSULE BY MOUTH THREE TIMES DAILY quetiapine 300 mg tablet 300 mg PO DAILY Patient Comments: TAKE 1 TABLET BY MOUTH AT BEDTIME gabapentin 400 mg capsule 400 mg PO DAILY Patient Comments: TAKE 1 CAPSULE BY MOUTH EVERY 8 HOURS levothyroxine 75 mcg tablet 75 mcg PO DAILY Patient Comments: TAKE 1 TABLET BY MOUTH ONCE DAILY propranolol 10 mg tablet 10 mg PO DAILY Patient Comments: TAKE 1 TABLET BY MOUTH THREE TIMES DAILY NEEDED FOR ANXIETY lithium carbonate 300 mg capsule 300 mg PO DAILY Patient Comments: TAKE 1 CAPSULE BY MOUTH THREE TIMES DAILY hydroxyzine pamoate 25 mg capsule 25 mg PO DAILY Patient Comments: TAKE 1 CAPSULE BY MOUTH TWICE DAILY NEEDED rosuvastatin 40 mg tablet 40 mg PO DAILY Patient Comments: TAKE 1 TABLET BY MOUTH EVERY DAY quetiapine 50 mg tablet 50 mg PO DAILY hydrochlorothiazide 12.5 mg tablet 12.5 mg PO DAILY Patient Comments: TAKE 1 TABLET BY MOUTH EVERY DAY Myrbetriq 50 mg tablet extended release 24 hr 50 mg PO DAILY Patient Comments: TAKE 1 TABLET BY MOUTH ONCE DAILY Referrals Follow up/Referrals: Ade Garza [Primary Care Provider] - See instructions Activity Restrictions/Add. Instructions Additional Instructions/Restrictions: Drink plenty of fluids. Take tylenol or ibuprofen for pain or fever. Take the medications as directed. Follow up with your regular doctor. GO TO THE ER FOR ANY WORSENING SYMPTOMS Don't start the oral steroids until tomorrow, since you had the shot here today. Clinical Impressions Clinical Impression: Acute bronchitis Instructions Patient Instructions: DI for Acute Bronchitis, Dexamethasone Injection Discharge ED Provider: Jaren Georges [facility] [place] H[place] General Stated complaint: cough soa congestion fever lethargy Time Seen by Provider: 10/10/23 12:31 History of Present Illness Provider Complaint: She states that over the past 1 week she has had a worsening cough, chest congestion and malaise. Related Data Home Medications Medication Instructions Recorded Confirmed gabapentin 400 mg capsule 400 mg PO DAILY 10/10/23 10/10/23 hydrochlorothiazide 12.5 mg tablet 12.5 mg PO DAILY 10/10/23 10/10/23 hydroxyzine pamoate 25 mg capsule 25 mg PO DAILY 10/10/23 10/10/23 levothyroxine 75 mcg tablet 75 mcg PO DAILY 10/10/23 10/10/23 lithium carbonate 300 mg capsule 300 mg PO DAILY 10/10/23 10/10/23 mirabegron 50 mg tablet,extended 50 mg PO DAILY 10/10/23 10/10/23 release 24 hr (Myrbetriq) pentosan polysulfate sodium 100 mg 100 mg PO TID 10/10/23 10/10/23 capsule (Elmiron) propranolol 10 mg tablet 10 mg PO DAILY 10/10/23 10/10/23 quetiapine 300 mg tablet 300 mg PO DAILY 10/10/23 10/10/23 quetiapine 50 mg tablet 50 mg PO DAILY 10/10/23 10/10/23 rosuvastatin 40 mg tablet 40 mg PO DAILY 10/10/23 10/10/23 Previous Rx's Medication Instructions Recorded benzonatate 100 mg capsule 100 mg PO TIDP PRN Cough #30 caps 10/10/23 cefdinir 300 mg capsule 300 mg PO BID #20 caps 10/10/23 guaifenesin 600 mg tablet, 600 - 1,200 mg PO BIDP PRN 10/10/23 extended release 12 hr (Mucinex) Congestion #30 tabs methylprednisolone 4 mg tablets in 4 mg PO DIRECTED 6 days #21 tabs 10/10/23 a dose pack Allergies Allergy/AdvReac Type Severity Reaction Status Date / Time codeine Allergy Intermediate rash, Verified 10/17/22 10:28 breathing issues vancomycin Allergy Intermediate Verified 10/17/22 10:28 Fish Containing Products Allergy Verified 10/17/22 10:28 fish derived Allergy Verified 10/17/22 10:28 Penicillins Allergy Verified 10/17/22 10:28 [facility] Disclaimer: The information contained in this section may have been updated after the patient was seen, as this information can be updated by other users. Medical History Allergies Anxiety and depression Asthma History of appendicitis Hypertension Overactive bladder Thyroid activity decreased Surgical History H/O section History of appendectomy History of cholecystectomy Family History Other Family history of hypertension Social History Smoking Status: Never smoker alcohol intake: never substance use type: denies use current occupational status: unemployed Travel in the last 8 weeks: None ROS Obtained: Yes All systems reviewed & no additional complaints except as documented Constitutional Constitutional: Denies fever(s) and Reports poor appetite Eyes Eyes: Reports system reviewed and no additional complaints, except as documented ENT Ears, Nose, Mouth, and Throat: Reports as per HPI Cardiovascular Cardiovascular: Reports system reviewed and no additional complaints, except as documented and Denies chest pain Respiratory Respiratory: Denies shortness of breath, Reports chest congestion, Reports cough, Denies stridor and Denies wheezing Gastrointestinal Gastrointestingal: Reports system reviewed and no additional complaints, except as documented; Denies abdominal pain, diarrhea or vomiting Musculoskeletal Musculoskeletal: Reports system reviewed and no additional complaints, except as documented and Denies arthralgias Integumentary/Breasts Skin/Breast: Reports system reviewed and no additional complaints, except as documented and Denies rash Neurologic Neurologic: Denies paresthesias Allergic/Immunologic Allergic/Immunologic: Denies wheezing Physical Exam General General appearance: alert and in no apparent distress Eye Eye exam: Present normal appearance, PERRL and EOMI ENT ENT exam: Present mucous membranes moist and normal external ear exam Expanded ENT Exam External ear exam: Present normal external inspection TM/Canal exam: Bilateral TM: erythema and bulging Nose exam: Absent sinus tenderness Nasal speculum exam: Bilateral: normal Mouth exam: Present normal external inspection; Absent drooling Teeth exam: Present normal inspection Throat exam: Present tonsillar erythema and tonsillomegaly Neck Neck exam: Present normal inspection, full ROM and trachea midline; Absent tenderness, lymphadenopathy or thyromegaly Chest Chest inspection: Present normal inspection and symmetric chest wall rise; Absent tenderness or rash Respiratory Respiratory exam: Present normal lung sounds bilaterally; Absent respiratory distress, wheezes, stridor or accessory muscle use Cardiovascular Cardiovascular exam: Present regular rate, normal rhythm and normal heart sounds Abdominal Exam Abdominal exam: Present soft; Absent distention, tenderness, guarding, rebound or rigidity Extremities Exam Extremities exam: Present normal inspection, full ROM and normal capillary refill; Absent tenderness or calf tenderness Back Exam Back exam: Present normal inspection and full ROM; Absent tenderness Neurological Exam Neurological exam: Present alert and oriented X3 Psychiatric Psychiatric exam: Present normal affect and normal mood Skin Skin exam: Present warm, dry, intact and normal color Lymphatic Lymphatic Findings: no adenopathy Medical Decision Making Medical Records Medical records reviewed: No I reviewed the patient's medical records. Edward Inquiry Pt receiving controlled substance: No Lab Data Lab results reviewed: Yes I reviewed the patient's lab results. Radiology Data #1: Image(s): Chest Image Reviewed: Yes I reviewed the patient's radiology image and Yes I have reviewed radiologist's interpretation Preliminary Findings: No Infiltrates Seen FINAL REPORT CLINICAL HISTORY: cough, congestion COMPARISON: None FINDINGS: Two views of the chest were obtained. The heart size and pulmonary vascularity are within normal limits. The mediastinum is normal. There is mild bronchial wall thickening consistent with bronchitis. There are small right lung base opacities which may represent atelectasis or pneumonia. There is no pneumothorax. The bony thorax is intact. IMPRESSION: Bronchitis. Small right lung base opacities, may represent atelectasis or pneumonia. Reviewed, Interpreted and Dictated by Remy Corbin III, MD Transcribed by Tamanna Del Rio Authenticated and [facility]
[2023-10-10 12:30] VITALS: BP 119/68; PULSE 79; RESP 22; TEMP 36.8; O2SAT 98; BMI 38.1
--- NOTE | 2023-10-10 13:00 | XR_ITS ---
FINAL REPORT CLINICAL HISTORY: cough, congestion COMPARISON: None FINDINGS: Two views of the chest were obtained. The heart size and pulmonary vascularity are within normal limits. The mediastinum is normal. There is mild bronchial wall thickening consistent with bronchitis. There are small right lung base opacities which may represent atelectasis or pneumonia. There is no pneumothorax. The bony thorax is intact. IMPRESSION: Bronchitis. Small right lung base opacities, may represent atelectasis or pneumonia. Reviewed, Interpreted and Dictated by Remy Corbin III, MD Transcribed by Tamanna Del Rio Authenticated and [facility]
[2023-10-10] MEDS: DEXAMETHASONE 4MG/ML 1ML VIAL 8 MG IM (13:45)
[2023-10-10 13:54] VITALS: BP 119/68; PULSE 79; RESP 22; TEMP 36.8; O2SAT 98
== END 2023-10-10 14:00 | disposition home or self-care (01) ==
PROVIDERS: Emergency Provider Nurse Practitioner Family; PCP Nurse Practitioner Family
DX: J20.9 Acute bronchitis, unspecified (principal); R06.02 Shortness of breath; R05.9 Cough, unspecified; R50.9 Fever, unspecified; R09.81 Nasal congestion; R09.89 Other specified symptoms and signs involving the circulatory and respiratory systems; R53.81 Other malaise; J45.909 Unspecified asthma, uncomplicated; I10 Essential (primary) hypertension; E03.9 Hypothyroidism, unspecified
CPT/HCPCS: 71046; 96372; 99212; 99214; G0463

== ENCOUNTER 2024-03-10 23:21 | Emergency (ER) | payer MEDICARE, MEDICAID, SELFPAY ==
[2024-03-10 23:25] VITALS: BP 155/101; PULSE 82; RESP 17; TEMP 36.8; O2SAT 97; BMI 41.1
--- NOTE | 2024-03-10 23:46 | XR_ITS ---
PROCEDURE INFORMATION: Exam: XR Left Knee Exam date and time: 03/11/2024 12:01 AM Age: 39 years old Clinical indication: Pain; Knee; Left; Additional info: Fall, persistent knee pain TECHNIQUE: Imaging protocol: Radiologic exam of the left knee. Views: 3 views. COMPARISON: CR XR KNEE LT 3V 06/05/2021 4:35 PM FINDINGS: Bones/joints: No acute fracture or malalignment. Medial compartment osteoarthritis. Moderate joint effusion. Soft tissues: Normal. IMPRESSION: Moderate joint effusion without identifiable acute osseous findings.
--- NOTE | 2024-03-10 23:59 | ED_ITS ---
Discharge Plan Disposition Patient Disposition: Home, Self-Care Prescriptions Prescriptions: New lidocaine 5 % adhesive patch,medicated 1 patch topical DAILY PRN (Reason: pain) Qty: 30 0RF Rx Instructions: leave on most painful area for up to 12 hrs No Action Elmiron 100 mg capsule 100 mg PO TID Patient Comments: TAKE 1 CAPSULE BY MOUTH THREE TIMES DAILY quetiapine 300 mg tablet 300 mg PO DAILY Patient Comments: TAKE 1 TABLET BY MOUTH AT BEDTIME gabapentin 400 mg capsule 400 mg PO DAILY Patient Comments: TAKE 1 CAPSULE BY MOUTH EVERY 8 HOURS levothyroxine 75 mcg tablet 75 mcg PO DAILY Patient Comments: TAKE 1 TABLET BY MOUTH ONCE DAILY propranolol 10 mg tablet 10 mg PO DAILY Patient Comments: TAKE 1 TABLET BY MOUTH THREE TIMES DAILY NEEDED FOR ANXIETY lithium carbonate 300 mg capsule 300 mg PO DAILY Patient Comments: TAKE 1 CAPSULE BY MOUTH THREE TIMES DAILY hydroxyzine pamoate 25 mg capsule 25 mg PO DAILY Patient Comments: TAKE 1 CAPSULE BY MOUTH TWICE DAILY NEEDED rosuvastatin 40 mg tablet 40 mg PO DAILY Patient Comments: TAKE 1 TABLET BY MOUTH EVERY DAY quetiapine 50 mg tablet 50 mg PO DAILY hydrochlorothiazide 12.5 mg tablet 12.5 mg PO DAILY Patient Comments: TAKE 1 TABLET BY MOUTH EVERY DAY Myrbetriq 50 mg tablet extended release 24 hr 50 mg PO DAILY Patient Comments: TAKE 1 TABLET BY MOUTH ONCE DAILY methylprednisolone 4 mg Tablets,Dose Pack 4 mg PO DIRECTED 6 Days Qty: 21 0RF Rx Instructions: Take 1 pack as directed for 6 days guaifenesin [Mucinex] 600 mg tablet extended release 12hr 600 - 1,200 mg PO BIDP PRN (Reason: Congestion) Qty: 30 0RF benzonatate [benzonatate] 100 mg capsule 100 mg PO TIDP PRN (Reason: Cough) Qty: 30 0RF cefdinir 300 mg capsule 300 mg PO BID Qty: 20 0RF Referrals Follow up/Referrals: Provider,Referral, MD [Primary Care Provider] - See instructions Activity Restrictions/Add. Instructions Additional Instructions/Restrictions: Please follow-up with your primary care provider or with Dr. Charles, our orthopedist, for further assessment and possible MRI. Please return to the emergency department if you develop any new or worsening symptoms or become concerned for your health. Please take Tylenol and ibuprofen as needed for pain. Please use lidocaine patches as needed. Please use ice and elevation as needed. Clinical Impressions Clinical Impression: Effusion of knee joint, left Knee pain, left Qualifiers: Chronicity: acute Qualified Code(s): M25.562 - Pain in left knee Instructions Patient Instructions: DI for Skin Abscess Discharge ED Provider: Zack Jackson General Adult HPI General Chief complaint: Skin/Abscess/Foreign Body Stated complaint: fall,knee pain mainly L,surgery L breast,inflamed Time Seen by Provider: 03/10/24 23:25 Mode of Arrival: Wheelchair Source of Information: Patient Limitations: No Limitations Description of Symptoms (Recalled from ER Triage Doc. by RN): Pt to ED via wheelchair with c/o left knee pain from a fall 2 days ago. pt states she was running on a porch and fell down onto her left knee. Pt also c/o pain and red ness to left breast from a biopsy that was done last . History of Present Illness HPI narrative: 39-year-old female presents for left knee pain after fall. She reports that she had a slip and fall with hyperflexion of her left knee a few days ago. She is still been able to ambulate on it but reports it feels swollen and painful. She reports that she feels a clicking when she flexes and extends it. She denies any other significant trauma during the fall. Patient also complains of some pain around her left breast incision site. She had a biopsy performed a few days ago and would like it to be evaluated as well. Related Data Home Medications Medication Instructions Recorded Confirmed gabapentin 400 mg capsule 400 mg PO DAILY 10/10/23 10/10/23 hydrochlorothiazide 12.5 mg tablet 12.5 mg PO DAILY 10/10/23 10/10/23 hydroxyzine pamoate 25 mg capsule 25 mg PO DAILY 10/10/23 10/10/23 levothyroxine 75 mcg tablet 75 mcg PO DAILY 10/10/23 10/10/23 lithium carbonate 300 mg capsule 300 mg PO DAILY 10/10/23 10/10/23 mirabegron 50 mg tablet,extended 50 mg PO DAILY 10/10/23 10/10/23 release 24 hr (Myrbetriq) pentosan polysulfate sodium 100 mg 100 mg PO TID 10/10/23 10/10/23 capsule (Elmiron) propranolol 10 mg tablet 10 mg PO DAILY 10/10/23 10/10/23 quetiapine 300 mg tablet 300 mg PO DAILY 10/10/23 10/10/23 quetiapine 50 mg tablet 50 mg PO DAILY 10/10/23 10/10/23 rosuvastatin 40 mg tablet 40 mg PO DAILY 10/10/23 10/10/23 Previous Rx's Medication Instructions Recorded benzonatate 100 mg capsule 100 mg PO TIDP PRN Cough #30 caps 10/10/23 cefdinir 300 mg capsule 300 mg PO BID #20 caps 10/10/23 guaifenesin 600 mg tablet, 600 - 1,200 mg (1 - 2 x 600 mg) PO 10/10/23 extended release 12 hr (Mucinex) BIDP PRN Congestion #30 tabs methylprednisolone 4 mg tablets in 4 mg PO DIRECTED 6 days #21 tabs 10/10/23 a dose pack lidocaine 5 % topical patch 1 patch topical DAILY PRN pain #30 03/11/24 ea Allergies Allergy/AdvReac Type Severity Reaction Status Date / Time codeine Allergy Intermediate rash, Verified 10/17/22 10:28 breathing issues vancomycin Allergy Intermediate Verified 10/17/22 10:28 Fish Containing Products Allergy Verified 10/17/22 10:28 fish derived Allergy Verified 10/17/22 10:28 Penicillins Allergy Verified 10/17/22 10:28 PFSH [facility] Disclaimer: The information contained in this section may have been updated after the patient was seen, as this information can be updated by other users. Medical History Allergies Anxiety and depression Asthma History of appendicitis Hypertension Overactive bladder Thyroid activity decreased Surgical History H/O section History of appendectomy History of cholecystectomy Family History Other Family history of hypertension Social History Smoking Status: Never smoker alcohol intake: never substance use type: denies use current occupational status: unemployed Travel in the last 8 weeks: None ROS Obtained: Yes All systems reviewed & no additional complaints except as documented Physical Exam General General appearance: alert and in no apparent distress Head Head exam: atraumatic and normocephalic Eye Eye exam: Present normal appearance, PERRL and EOMI ENT ENT exam: Present normal oropharynx and normal external ear exam Neck Neck exam: Present normal inspection and full ROM Chest Chest inspection: Present normal inspection, symmetric chest wall rise and other (There is a approximately 3 cm linear incision inferior to the left nipple. No dehiscence, no significant erythema or induration, generally well-appearing); Absent tenderness Respiratory Respiratory exam: Present normal lung sounds bilaterally; Absent respiratory distress Cardiovascular Cardiovascular exam: Present regular rate and normal rhythm Abdominal Exam Abdominal exam: Present soft; Absent distention, tenderness or guarding Extremities Exam Extremities exam: Present normal inspection and other (Left lower extremity: Pain with active and passive range of motion of the knee. No ligamentous instability noted on exam. No noted erythema or joint swelling, though evaluation is limited by body habitus.) Back Exam Back exam: Present normal inspection; Absent tenderness Neurological Exam Neurological exam: Present alert and oriented X3; Absent motor sensory deficit Psychiatric Psychiatric exam: Present normal affect and normal mood Skin Skin exam: Present warm, dry and normal color Lymphatic Lymphatic Findings: no adenopathy Medical Decision Making Medical Records Medical records reviewed: Yes I reviewed the patient's medical records. Edward Inquiry Pt receiving controlled substance: No Edward was queried for this patient: No Vital Signs: 03/10/24 23:25 Temperature 98.3 F Temperature Source Oral Pulse Rate [Left Radial] 82 Respiratory Rate 17 Blood Pressure [Right Arm] 155/101 H Blood Pressure Mean [Right Arm] 119 Blood Pressure Source [Right Arm] Automatic Cuff Blood Pressure Position [Right Arm] Sitting 02 Sat by Pulse Oximetry 97 Oxygen Delivery Method Room Air Lab Data Lab results reviewed: Yes I reviewed the patient's lab results. Orders (Tests/Meds): ED MEDICATIONS Discontinued Medications Generic Name Dose Route Start Last Admin Trade Name Freq PRN Reason Stop Dose Admin Acetaminophen 1,000 mg 03/10/24 23:46 03/11/24 00:04 Acetaminophen 500mg Tab PO 03/10/24 23:47 1,000 mg ONCE ONE Administration Ketorolac Tromethamine 30 mg 03/10/24 23:46 03/11/24 00:04 Ketorolac 30mg/Ml Vial IV 03/10/24 23:47 30 mg ONCE ONE Administration Lidocaine 1 each 03/10/24 23:46 03/11/24 00:04 Lidocaine 5% Transdermal Patch TP 03/10/24 23:47 1 each ONCE ONE Administration Methocarbamol 500 mg 03/10/24 23:46 03/11/24 00:04 Methocarbamol 500mg Tablet PO 03/10/24 23:47 500 mg ONCE ONE Administration ORDERS Category Date Time Status Knee XR left 3 views [XR knee LT 3V] Stat Exams 03/10/24 23:46 Completed Medical Decision Narrative: 39-year-old female presents with left knee pain after a fall a few days ago, incisional pain at her recent left breast biopsy site. History was obtained interactive discussion with patient, family. On arrival, patient is [afebrile, hemodynamically stable, satting appropriately, alert, oriented x4, GCS 15], moving all extremities spontaneously. Full physical exam performed and significant for findings documented above, no ligamentous instability of the knee, no evidence of infection, breast incision is well-healing without dehiscence and sutures are in place. Differential includes but is not limited to fracture, dislocation, neurovascular/ligamentous/meniscal injury, cellulitis, abscess, septic joint. Patient was given Tylenol, Toradol, Robaxin, lidocaine patch for symptomatic management and correction of underlying abnormalities. Workup initiated including radiograph of the left knee. On re-evaluation, patient [remains afebrile, HD stable.] Imaging independently interpreted by me and significant for no acute fracture or dislocation of the knee. Does show moderate knee effusion. See radiology read for full review of final results. Blood work and CT imaging was considered, but deemed unnecessary due to history and physical exam. Given patient history, exam and workup, patient's presentation most likely represents meniscal injury of the left knee. These findings were communicated to patient. She is encouraged to follow-up with PCP or with our orthopedist Dr. Charles for MRI and further assessment. She was given instructions regarding symptomatic care. She was discharged in stable condition.. Procedures Risk/Benefits of Procedure(s) Were Explained: Yes Critical Care Critical Care Time Critical Care Time: No
[2024-03-11] MEDS: KETOROLAC 30MG/ML VIAL 30 MG IV (00:04)
[2024-03-11] MEDS: LIDOCAINE 5% TRANSDERMAL PATCH 1 EACH TP (00:04)
[2024-03-11] MEDS: ACETAMINOPHEN 500MG TAB 1000 MG PO (00:04)
[2024-03-11] MEDS: METHOCARBAMOL 500MG TABLET 500 MG PO (00:04)
[2024-03-11 01:06] VITALS: BP 127/81; PULSE 77; RESP 17; TEMP 36.8; O2SAT 97
== END 2024-03-11 01:13 | disposition home or self-care (01) ==
PROVIDERS: Emergency Provider Emergency Medicine
DX: M25.562 Pain in left knee (principal); M25.462 Effusion, left knee; E03.9 Hypothyroidism, unspecified; I10 Essential (primary) hypertension; W01.10XA Fall on same level from slipping, tripping and stumbling with subsequent striking against unspecified object, initial encounter
CPT/HCPCS: 73562; 96374; 99284

== ENCOUNTER 2024-04-10 12:51 | Emergency (ER) | payer MEDICARE, MEDICAID, SELFPAY ==
[2024-04-10 13:00] VITALS: BP 139/88; PULSE 80; RESP 18; TEMP 36.9; O2SAT 100; BMI 40.6
--- NOTE | 2024-04-10 13:04 | EXP.UTC ---
Discharge Plan Disposition Patient Disposition: Home, Self-Care Condition: Good Prescriptions Prescriptions: New ibuprofen [IBU] 800 mg tablet 800 mg PO Q8HP PRN (Reason: Moderate Pain) Qty: 30 0RF No Action meloxicam 7.5 mg tablet 7.5 mg PO DAILY Qty: 30 0RF Elmiron 100 mg capsule 100 mg PO TID Patient Comments: TAKE 1 CAPSULE BY MOUTH THREE TIMES DAILY gabapentin 400 mg capsule 400 mg PO DAILY Patient Comments: TAKE 1 CAPSULE BY MOUTH EVERY 8 HOURS levothyroxine 75 mcg tablet 75 mcg PO DAILY Patient Comments: TAKE 1 TABLET BY MOUTH ONCE DAILY propranolol 10 mg tablet 10 mg PO DAILY Patient Comments: TAKE 1 TABLET BY MOUTH THREE TIMES DAILY NEEDED FOR ANXIETY lithium carbonate 300 mg capsule 300 mg PO DAILY Patient Comments: TAKE 1 CAPSULE BY MOUTH THREE TIMES DAILY hydroxyzine pamoate 25 mg capsule 25 mg PO DAILY Patient Comments: TAKE 1 CAPSULE BY MOUTH TWICE DAILY NEEDED rosuvastatin 40 mg tablet 40 mg PO DAILY Patient Comments: TAKE 1 TABLET BY MOUTH EVERY DAY hydrochlorothiazide 12.5 mg tablet 12.5 mg PO DAILY Patient Comments: TAKE 1 TABLET BY MOUTH EVERY DAY mirabegron [Myrbetriq] 50 mg tablet extended release 24 hr 50 mg PO DAILY Patient Comments: TAKE 1 TABLET BY MOUTH ONCE DAILY lidocaine 5 % adhesive patch,medicated 1 patch topical DAILY PRN (Reason: pain) Qty: 30 0RF Rx Instructions: leave on most painful area for up to 12 hrs quetiapine 200 mg tablet 200 mg PO DAILY Patient Comments: TAKE 1 TABLET BY MOUTH AT BEDTIME buspirone 30 mg tablet 30 mg PO BID Patient Comments: TAKE 1 TABLET BY MOUTH TWICE DAILY duloxetine 60 mg capsule,delayed release(DR/EC) 60 mg PO DAILY Patient Comments: TAKE 1 CAPSULE BY MOUTH DAILY Referrals Follow up/Referrals: Benjamin Charles DO [Staff Physician] - See instructions Fanta Rodriguez PA [Primary Care Provider] - See instructions Activity Restrictions/Add. Instructions Additional Instructions/Restrictions: Rest the extremity, Elevate the extremity as tolerated while you are resting. Take ibuprofen for pain. I sent in a prescription to your pharmacy. Follow up with Dr. Charles (orthopedics). I put in a referral but you need to call his office and schedule an appointment. Follow up with your regular doctor. GO TO THE ER FOR ANY WORSENING SYMPTOMS Clinical Impressions Clinical Impression: Left elbow pain, Pain in left arm Instructions Patient Instructions: How to Use a Sling, Elbow Sprain, DI for Elbow Pain Discharge ED Provider: Jaren Georges [facility] General Stated complaint: left arm pain AO fall Time Seen by Provider: 04/10/24 13:04 History of Present Illness Provider Complaint: She states that she fell 2 weeks ago and came down on her left arm. She had elbow pain initially after the fall, but it seemed to get better. Today, she states that she moved her couch and it caused her left elbow and upper arm to begin hurting again. Related Data Home Medications Medication Instructions Recorded Confirmed gabapentin 400 mg capsule 400 mg PO DAILY 10/10/23 04/10/24 hydrochlorothiazide 12.5 mg tablet 12.5 mg PO DAILY 10/10/23 04/10/24 hydroxyzine pamoate 25 mg capsule 25 mg PO DAILY 10/10/23 04/10/24 levothyroxine 75 mcg tablet 75 mcg PO DAILY 10/10/23 04/10/24 lithium carbonate 300 mg capsule 300 mg PO DAILY 10/10/23 04/10/24 mirabegron 50 mg tablet,extended 50 mg PO DAILY 10/10/23 04/10/24 release 24 hr (Myrbetriq) pentosan polysulfate sodium 100 mg 100 mg PO TID 10/10/23 03/23/24 capsule (Elmiron) propranolol 10 mg tablet 10 mg PO DAILY 10/10/23 04/10/24 rosuvastatin 40 mg tablet 40 mg PO DAILY 10/10/23 04/10/24 buspirone 30 mg tablet 30 mg PO BID 04/10/24 04/10/24 duloxetine 60 mg capsule,delayed 60 mg PO DAILY 04/10/24 04/10/24 release quetiapine 200 mg tablet 200 mg PO DAILY 04/10/24 04/10/24 Previous Rx's Medication Instructions Recorded lidocaine 5 % topical patch 1 patch topical DAILY PRN pain #30 03/11/24 ea meloxicam 7.5 mg tablet 7.5 mg PO DAILY #30 tabs 03/23/24 ibuprofen 800 mg tablet (IBU) 800 mg PO Q8HP PRN Moderate Pain 04/10/24 #30 tabs Allergies Allergy/AdvReac Type Severity Reaction Status Date / Time codeine Allergy Intermediate rash, Verified 04/10/24 13:14 breathing issues vancomycin Allergy Intermediate Verified 04/10/24 13:14 Fish Containing Products Allergy Verified 04/10/24 13:14 fish derived Allergy Verified 04/10/24 13:14 Penicillins Allergy Verified 04/10/24 13:14 PFSH [facility] Disclaimer: The information contained in this section may have been updated after the patient was seen, as this information can be updated by other users. Medical History History of appendicitis Asthma Allergies Overactive bladder Hypertension Thyroid activity decreased Anxiety and depression Surgical History History of appendectomy History of cholecystectomy H/O section Family History Other Family history of hypertension Social History Smoking Status: Never smoker alcohol intake: never substance use type: denies use current occupational status: unemployed Travel in the last 8 weeks: None ROS Obtained: Yes All systems reviewed & no additional complaints except as documented Constitutional Constitutional: Denies chills and Denies fever(s) Eyes Eyes: Denies eye discharge ENT Ears, Nose, Mouth, and Throat: Denies dizziness, Denies otalgia and Denies sore throat Cardiovascular Cardiovascular: Denies chest pain Respiratory Respiratory: Denies shortness of breath, Denies chest congestion, Denies cough, Denies stridor and Denies wheezing Gastrointestinal Gastrointestingal: Denies nausea or vomiting Musculoskeletal Musculoskeletal: Reports as per HPI Integumentary/Breasts Skin/Breast: Denies rash Neurologic Neurologic: Denies dizziness and Denies paresthesias Allergic/Immunologic Allergic/Immunologic: Denies wheezing Physical Exam General General appearance: alert and in no apparent distress Head Head exam: atraumatic, normocephalic and normal inspection Eye Eye exam: Present normal appearance, PERRL and EOMI ENT ENT exam: Present normal exam, normal oropharynx, mucous membranes moist, TM's normal bilaterally and normal external ear exam Neck Neck exam: Present normal inspection, full ROM and trachea midline; Absent meningismus or lymphadenopathy Chest Chest inspection: Present normal inspection and symmetric chest wall rise; Absent tenderness Respiratory Respiratory exam: Present normal lung sounds bilaterally; Absent respiratory distress Cardiovascular Cardiovascular exam: Present regular rate and normal rhythm; Absent JVD Abdominal Exam Abdominal exam: Present soft and normal bowel sounds; Absent distention, tenderness or guarding Extremities Exam Extremities exam: Present normal capillary refill; Absent calf tenderness Expanded Upper Extremity Exam Left: Shoulder exam: Present full ROM; Absent tenderness, swelling, abrasion, laceration, ecchymosis, deformity, crepitus, dislocation, erythema or tenderness over AC joint Arm exam: Present full ROM and tenderness; Absent swelling, abrasion, laceration, ecchymosis, deformity, crepitus or erythema Elbow exam: Present full ROM and tenderness; Absent swelling, abrasion, laceration, ecchymosis, deformity, crepitus, dislocation, erythema, effusion, pain w/ pronation/supination or tenderness over radial head Forearm/Wrist exam: Present normal inspection and full ROM; Absent tenderness Hand exam: Present normal inspection and full ROM; Absent tenderness Neuromotor exam: Normal wrist extension, thumb opposition, thumb IP flexion, thumb adduction and fingers 2-5 abduction Neurosensory exam: Normal radial nerve, ulnar nerve and median nerve Vascular exam: Normal capillary refill, radial pulse and ulnar pulse Back Exam Back exam: Present normal inspection; Absent tenderness Neurological Exam Neurological exam: Present alert and oriented X3 Psychiatric Psychiatric exam: Present normal affect and normal mood Skin Skin exam: Present warm, dry, intact and normal color Lymphatic Lymphatic Findings: no adenopathy Medical Decision Making Medical Records Medical records reviewed: No I reviewed the patient's medical records. Edward Inquiry Pt receiving controlled substance: No Radiology Data #1: Image(s): Elbow Image Reviewed: Yes I reviewed the patient's radiology image and Yes I have reviewed radiologist's interpretation Preliminary Findings: No Fracture Seen Accession No. : [id number] Patient Name / ID : ELLA KINCAID / [id number] Exam Date : 04/10/2024 13:26:06 ( Final ) Study Comment : Sex / Age : F / 39Y Creator : MICHELLE ROSS Dictator : Ballet Teacher : Roll Contour Grinder : MICHELLE ROSS Approver2 : Report Date : 04/10/2024 13:50:56 My Comment : PROCEDURE INFORMATION: Exam: XR Left Elbow Exam date and time: 04/10/2024 1:26 PM Age: 39 years old Clinical indication: Pain; Elbow; Left; Additional info: Fall/pain TECHNIQUE: Imaging protocol: Radiologic exam of the left elbow. Views: 3 or more views. COMPARISON: CR Humerus L 04/10/2024 1:23 PM FINDINGS: Bones/joints: Normal. Soft tissues: Normal. IMPRESSION: No acute findings. Procedures Risk/Benefits of Procedure(s) Were Explained: Yes Orthopedic Splinting/Casting Injury #1: Side: left Upper Extremity Injury Location: upper arm, elbow and forearm Upper Extremity Immobilizer: sling and applied by nurse/dr giron Post Cast/Splinting Neuro Status: intact and no change Post Cast/Splinting Vasc Status: intact and no change
--- NOTE | 2024-04-10 13:25 | XR_ITS ---
PROCEDURE INFORMATION: Exam: XR Left Humerus Exam date and time: 04/10/2024 1:23 PM Age: 39 years old Clinical indication: Pain; Upper arm; Left; Additional info: Fall/pain TECHNIQUE: Imaging protocol: Radiologic exam of the left humerus. Views: 2 or more views. COMPARISON: CR XR SHOULDER LT MIN 2V 04/10/2024 1:21 PM FINDINGS: Bones/joints: Normal. Soft tissues: Normal. IMPRESSION: No acute findings.
--- NOTE | 2024-04-10 13:25 | XR_ITS ---
PROCEDURE INFORMATION: Exam: XR Left Elbow Exam date and time: 04/10/2024 1:26 PM Age: 39 years old Clinical indication: Pain; Elbow; Left; Additional info: Fall/pain TECHNIQUE: Imaging protocol: Radiologic exam of the left elbow. Views: 3 or more views. COMPARISON: CR Humerus L 04/10/2024 1:23 PM FINDINGS: Bones/joints: Normal. Soft tissues: Normal. IMPRESSION: No acute findings.
--- NOTE | 2024-04-10 13:25 | XR_ITS ---
PROCEDURE INFORMATION: Exam: XR Left Shoulder Exam date and time: 04/10/2024 1:21 PM Age: 39 years old Clinical indication: Pain; Upper arm and shoulder; Left; Additional info: Fall/pain TECHNIQUE: Imaging protocol: Radiologic exam of the left shoulder. Views: 2 or more views. COMPARISON: CR XR CHEST 2V 10/10/2023 12:57 PM FINDINGS: Bones/joints: AC degenerative arthritic type changes. Findings stable since 10/10/2023. Soft tissues: Normal. IMPRESSION: No evidence of acute osseous injury.
[2024-04-10 14:39] VITALS: BP 139/88; PULSE 80; RESP 18; TEMP 36.9; O2SAT 100
== END 2024-04-10 14:39 | disposition home or self-care (01) ==
PROVIDERS: Emergency Provider Nurse Practitioner Family; PCP Physician Assistant
DX: M79.622 Pain in left upper arm (principal); M25.522 Pain in left elbow; X50.0XXA Overexertion from strenuous movement or load, initial encounter
CPT/HCPCS: 73030; 73060; 73080; 99212; 99214; G0463

== ENCOUNTER 2024-05-21 11:52 | Outpatient (CLI) | payer MEDICARE, MEDICAID, SELFPAY ==
[2024-05-21 18:25] LABS: Basophils # 0.1 K/mm3 (0-0.2); Basophils % 0.6 % (0.1-2.0); Eosinophils # 0.5 K/mm3 (0.0-0.4); Eosinophils % 4.1 % (0.1-12.0); Hematocrit 43.3 % (37.0-47.0); Hemoglobin 14.2 g/dL (12.2-16.2); Lymphocytes # 2.3 K/mm3 (0.7-4.5); Lymphocytes % 19.6 % (10-50); Mean Corpuscular HGB Conc 32.9 g/dL (31.8-35.4); Mean Corpuscular Hemoglobin 30.2 pg (27.0-31.2); Mean Corpuscular Volume 91.9 fl (81-99); Mean Platelet Volume 9.5 fl (7.4-10.4); Monocytes # 0.4 K/mm3 (0.1-1.0); Monocytes % 3.7 % (1.7-9.3); Neutrophils # 8.3 K/mm3 (1.8-7.8); Platelet Count 313 K/mm3 (142-424); Red Blood Count 4.71 M/mm3 (4.20-5.40); Red Cell Distribution Width 13.9 % (11.5-17.5); White Blood Count 11.6 K/mm3 (4.8-10.8)
[2024-05-21 18:59] LABS: Hemoglobin A1C 5.6 % (4.0-6.0)
[2024-05-21 19:51] LABS: Alanine Aminotransferase 65 U/L (12-78); Albumin Level 4.5 g/dl (3.5-5.0); Albumin/Globulin Ratio 1.3 (1.1-1.8); Alkaline Phosphatase 84 U/L (38-126); Aspartate Amino Transferase 51 U/L (14-36); Bilirubin,Total 0.4 mg/dl (0.2-1.3); Blood Urea Nitrogen 9 mg/dl (7-17); Calcium 9.6 mg/dl (8.4-10.2); Carbon Dioxide 26 mmol/L (22.0-30.0); Chloride 106 mmol/L (98-107); Chol/HDL Ratio 6.1 (1-3.5); Cholesterol 250 mg/dl (140-200); Estimated Glomerular Filt Rate 69 ml/min (>60); GFR (African American) 83 ML/MIN (>60); Globulin 3.4 g/dL (1.3-3.2); Glucose 90 mg/dl (74-100); HDL Cholesterol 41 mg/dl (40-60); Sodium 141 mmol/L (136-145); Total Protein,Serum 7.9 g/dl (6.3-8.2); Triglycerides 265 mg/dl (30-150); VLDL Cholesterol 53 mg/dL (0-40)
[2024-05-21 20:01] LABS: Direct LDL Cholesterol 166.95 mg/dL (100-129)
[2024-05-21 20:21] LABS: Thyroid Stimulating Hormone 2.55 uIU/mL (0.465-4.68)
[2024-05-22 08:56] LABS: HIV (1&2) Antibody Rapid NONREACTIVE (NONREACTIVE)
[2024-05-23 09:08] LABS: Lithium (Eskalith(R)) 0.7 mmol/L (0.5-1.2)
[2024-05-23 13:19] LABS: HCV Ab Non Reactive (Non Reactive)
== END 2024-05-21 23:59 | disposition home or self-care (01) ==
LOC: LAB.DROPOF 05-24 11:55
PROVIDERS: PCP Family Medicine; Visit Provider Family Medicine
DX: I10 Essential (primary) hypertension (principal); E03.9 Hypothyroidism, unspecified; M25.512 Pain in left shoulder; Z91.89 Other specified personal risk factors, not elsewhere classified; Z11.4 Encounter for screening for human immunodeficiency virus [HIV]; Z11.59 Encounter for screening for other viral diseases
CPT/HCPCS: 80050; 80053; 80061; 80178; 83036; 84443; 85025

== ENCOUNTER 2024-06-02 09:48 | Day surgery (SDC) | payer MEDICARE, MEDICAID, SELFPAY ==
[2024-06-02 10:56] VITALS: BMI 39.6
[2024-06-02 11:11] VITALS: BP 124/94; PULSE 86; RESP 18; TEMP 36.6; O2SAT 97
[2024-06-02] MEDS: LACTATED RINGERS 1000ML 1,000 ML 25 ML IV (11:22)
[2024-06-02 11:34] LABS: Urine Pregnancy, HCG Qual. Negative (Negative)
--- NOTE | 2024-06-02 11:44 | P.PNANES_ITS ---
[facility] Disclaimer: The information contained in this section may have been updated after the patient was seen, as this information can be updated by other users. Medical History History of appendicitis Asthma Allergies Overactive bladder Hypertension Thyroid activity decreased Anxiety and depression Surgical History History of appendectomy History of cholecystectomy H/O section Family History Other Family history of hypertension Social History Smoking Status: Never smoker alcohol intake: never substance use type: denies use current occupational status: disabled Travel in the last 8 weeks: None [facility] Anesthesia Checklist Patient Identification Patient Identification: Arm Band Structural Data Admitted From: Home Planned Operative Procedure/s: CTR Consent for Planned Operative Procedure(s) Verified: Yes Verified Documents: Surgical Consent and History and Physical NPO Status Verified Time NPO: 00:00 Chart Verification Results Verified: HCG Additional verifications Anesthesia Reactions: No Hx Blood Transfusions: No Blood Transfusion Reaction: No Airway Assessment Mallampati Score:: Class III C-Spine Mobility Assessed: Yes TMJ Mobility Assessed: Yes Dentition: Good Dentition Neurological Assessment Level of Consciousness: Awake Hx Seizures: No Numbness or tingling in extremities: No Anesthesia Plan Anesthesia Risk discussed: Yes Anesthesia Plan: Verified ASA Class: III Anesthesia Type: MAC
[2024-06-02] MEDS: LIDOCAINE 1% W/EPI 1:100,000 20ML VIAL 20 ML (12:20)
[2024-06-02] MEDS: CLINDAMYCIN PHOSPHATE/D5W 900 MG/50 ML PIGGYBACK 100 MG IV (12:30)
--- NOTE | 2024-06-02 12:35 | EXP.OP.NOTE ---
Date of procedure: 06/02/24 Pre-op Diagnosis:: Left carpal tunnel syndrome Post-op Diagnosis:: Same Procedure performed:: Left endoscopic carpal tunnel release Surgeon:: Benjamin Charles DO ASSOCIATE ENTERTAINMENT EDITOR:: Marco Hyman Anesthesia: MAC and local Estimated blood loss (mL): 0 Operative findings:: See dictation Operative note:: Patient is identified preoperatively. Left wrist marked with yes my initials. Transferred operative suite placed upon operating bed. Given sedation. Left upper extremity was then prepped and draped normal sterile fashion. Once prepped and draped final operative timeout performed to identify proper patient procedure and extremity. Everyone involved in the case agreed. There were no counter indications to beginning. She did receive preoperative antibiotics clindamycin. Marking pen was used to rafael plan incision over the volar wrist crease. Esmarch was used to exsanguinate the extremity and pneumatic tourniquet was inflated to 250 mmHg. Skin knife is used to incise through skin careful dissection was taken down with scissors to identify the most proximal aspect of the transverse carpal ligament. Once identified the small dilator followed by the larger dilator was placed into the carpal tunnel. This was then followed with a 4.0 mm sled. Once this lead was then placed the camera was then placed into the carpal tunnel and the transverse carpal ligament clearly seen superiorly within the wound. The hook was used to identify the most distal aspect of the transverse carpal ligament a soft tissue rasp was used to remove soft tissue from the undersurface of the transverse carpal ligament. And then using the hook blade transverse carpal ligament was released in its entirety this was directly visualized with the camera and confirmed. Once complete release was performed Sled was removed irrigation of the wound performed skin closed with nylon stitch. Sterile hand dressing placed. Patient waken anesthesia taken recovery in stable condition. Condition: stable Disposition: PACU Complications:: None apparent
[2024-06-02 12:41] VITALS: BP 150/86; PULSE 85; RESP 18; TEMP 36.4; O2SAT 94
[2024-06-02 12:58] VITALS: BP 140/69; PULSE 76; RESP 16; O2SAT 98
[2024-06-02 13:11] VITALS: BP 128/71; PULSE 76; RESP 18; O2SAT 98
== END 2024-06-02 13:11 | disposition home or self-care (01) ==
PROVIDERS: PCP Family Medicine; Visit Provider Orthopaedic Surgery
PROC: (CPT 64721; principal; 2024-06-02 11:30)
DX: G56.02 Carpal tunnel syndrome, left upper limb (principal)
CPT/HCPCS: 29848; 81025; 96374; J2250; J7120

== ENCOUNTER 2024-06-03 17:20 | Emergency (ER) | payer MEDICARE, MEDICAID, SELFPAY ==
[2024-06-03 17:22] VITALS: BP 148/79; PULSE 88; RESP 18; TEMP 36.8; O2SAT 95; BMI 39.6
--- NOTE | 2024-06-03 17:33 | PC.NURSE ---
er at bedside
--- NOTE | 2024-06-03 17:49 | HMH.EDGENADL ---
Discharge Plan Disposition Patient Disposition: Home, Self-Care Chief Complaint: PAIN Prescriptions Prescriptions: No Action meloxicam 7.5 mg tablet 7.5 mg PO DAILY Qty: 30 0RF Vraylar 1.5 mg capsule 1.5 mg PO DAILY montelukast 10 mg tablet 10 mg PO DAILY meloxicam 15 mg tablet 15 mg PO DAILY Qty: 30 3RF tramadol 50 mg tablet 50 mg PO Q8H PRN (Reason: pain) Qty: 45 1RF atorvastatin [Lipitor] 20 mg tablet 20 mg PO DAILY Qty: 90 3RF gabapentin 400 mg capsule 400 mg PO DAILY Patient Comments: TAKE 1 CAPSULE BY MOUTH EVERY 8 HOURS levothyroxine 75 mcg tablet 75 mcg PO DAILY Patient Comments: TAKE 1 TABLET BY MOUTH ONCE DAILY lithium carbonate 300 mg capsule 300 mg PO DAILY Patient Comments: TAKE 1 CAPSULE BY MOUTH THREE TIMES DAILY hydroxyzine pamoate 25 mg capsule 25 mg PO DAILY Patient Comments: TAKE 1 CAPSULE BY MOUTH TWICE DAILY NEEDED hydrochlorothiazide 12.5 mg tablet 12.5 mg PO DAILY Patient Comments: TAKE 1 TABLET BY MOUTH EVERY DAY mirabegron [Myrbetriq] 50 mg tablet extended release 24 hr 50 mg PO DAILY Patient Comments: TAKE 1 TABLET BY MOUTH ONCE DAILY quetiapine 200 mg tablet 200 mg PO DAILY Patient Comments: TAKE 1 TABLET BY MOUTH AT BEDTIME buspirone 30 mg tablet 30 mg PO BID Patient Comments: TAKE 1 TABLET BY MOUTH TWICE DAILY duloxetine 60 mg capsule,delayed release(DR/EC) 60 mg PO DAILY Patient Comments: TAKE 1 CAPSULE BY MOUTH DAILY tramadol 50 mg tablet 50 mg PO Q6H PRN (Reason: Postop pain) Qty: 28 0RF Referrals Follow up/Referrals: Javy Valencia MD [Primary Care Provider] - See instructions Activity Restrictions/Add. Instructions Additional Instructions/Restrictions: Call your family doctor to establish care for this visit to the emergency department and schedule follow-up within 48 hours to ensure improvement. If you have any worsening of your condition or any other concerning signs or symptoms, return to the emergency department or your primary care doctor for further evaluation. Take Tylenol 1000 mg every 6 hours (4 times daily) and ibuprofen 400 mg every 6 hours (4 times daily) as needed with food and water to prevent GI upset and kidney damage. 81 mg aspirin for the next 3 weeks, follow-up with your family doctor for further management. Clinical Impressions Clinical Impression: Acute pain of right lower extremity Print Language Print Language: American Discharge ED Provider: Grady Figueroa General Adult HPI General Chief complaint: PAIN Stated complaint: hand surg06/02 leg pain today Time Seen by Provider: 06/03/24 17:23 Mode of Arrival: Ambulatory Source of Information: Patient Limitations: No Limitations Description of Symptoms (Recalled from ER Triage Doc. by RN): pt presents to the er for RLE pain, states she had hand surgery on her L hand yesterday, the pain started yesterday after she got home, states she noticed 2 little knots today in the same leg, rates pain 5/10, dull, and constant, worse when walking, denies sob History of Present Illness HPI narrative: Please note that above description of symptoms, in this electronic medical record under categorization of recalled from ER triage doctor by RN are reflective of an initial nursing assessment, however, is not reflective of my full history and physical exam that was personally taken and clarified. Consequentially, this preceding description of symptoms, which may include the patient's categorized chief complaint in the EMR, do not reflect my personal clinical impression, and the ultimate description of history of present illness and patient stated complaints should be deferred to this section of the note. Unless stated otherwise or congruent with this section of the note, additional signs, symptoms, or incongruence should be interpreted as inaccurate with my clinical impression. Related Data Home Medications ?Medication ?Instructions ?Recorded ?Confirmed gabapentin 400 mg capsule 400 mg PO DAILY 10/10/23 06/02/24 hydrochlorothiazide 12.5 mg tablet 12.5 mg PO DAILY 10/10/23 06/02/24 hydroxyzine pamoate 25 mg capsule 25 mg PO DAILY 10/10/23 06/02/24 levothyroxine 75 mcg tablet 75 mcg PO DAILY 10/10/23 06/02/24 lithium carbonate 300 mg capsule 300 mg PO DAILY 10/10/23 06/02/24 mirabegron 50 mg tablet,extended 50 mg PO DAILY 10/10/23 06/02/24 release 24 hr (Myrbetriq) buspirone 30 mg tablet 30 mg PO BID 04/10/24 06/02/24 duloxetine 60 mg capsule,delayed 60 mg PO DAILY 04/10/24 06/02/24 release quetiapine 200 mg tablet 200 mg PO DAILY 04/10/24 06/02/24 cariprazine 1.5 mg capsule 1.5 mg PO DAILY 05/21/24 06/02/24 (Vraylar) montelukast 10 mg tablet 10 mg PO DAILY 05/21/24 06/02/24 Previous Rx's ?Medication ?Instructions ?Recorded meloxicam 7.5 mg tablet 7.5 mg PO DAILY #30 tabs 03/23/24 meloxicam 15 mg tablet 15 mg PO DAILY #30 tabs 05/21/24 tramadol 50 mg tablet 50 mg PO Q8H PRN pain #45 tabs 05/24/24 atorvastatin 20 mg tablet (Lipitor) 20 mg PO DAILY #90 tabs 05/27/24 tramadol 50 mg tablet 50 mg PO Q6H PRN Postop pain #28 06/02/24 tabs Allergies Allergy/AdvReac Type Severity Reaction Status Date / Time codeine Allergy Intermediate rash, Verified 06/03/24 17:36 breathing issues vancomycin Allergy Intermediate Verified 06/03/24 17:36 Fish Containing Products Allergy Verified 06/03/24 17:36 fish derived Allergy Verified 06/03/24 17:36 Penicillins Allergy Verified 06/03/24 17:36 PFSH PFSH Disclaimer: The information contained in this section may have been updated after the patient was seen, as this information can be updated by other users. Medical History History of appendicitis Asthma Allergies Overactive bladder Hypertension Thyroid activity decreased Anxiety and depression Surgical History History of appendectomy History of cholecystectomy H/O section Family History Other Family history of hypertension Social History Smoking Status: Never smoker alcohol intake: never substance use type: denies use current occupational status: disabled Travel in the last 8 weeks: None ROS Obtained: Yes All systems reviewed & no additional complaints except as documented Physical Exam General General appearance: alert Head Head exam: atraumatic and normocephalic Eye Eye exam: Present normal appearance, PERRL and EOMI Neck Neck exam: Present normal inspection, full ROM and trachea midline Respiratory Respiratory exam: Absent respiratory distress, wheezes, stridor, accessory muscle use or prolonged expiratory phase Cardiovascular Cardiovascular exam: Present other (Pulses equal symmetric in upper and lower extremities) Abdominal Exam Abdominal exam: Present soft; Absent distention, tenderness or pulsatile mass Extremities Exam Extremities exam: Absent edema Neurological Exam Neurological exam: Present alert, oriented X3 and CN II-XII intact; Absent motor sensory deficit Skin Skin exam: Present warm and dry; Absent diaphoresis or erythema Medical Decision Making Medical Records Medical records reviewed: Yes I reviewed the patient's medical records. Edward Inquiry Pt receiving controlled substance: No Edward was queried for this patient: No Vital Signs: 06/03/24 17:22 Temperature 98.2 F Temperature Source Oral Pulse Rate [Left Radial] 88 Respiratory Rate 18 Blood Pressure [Right Arm] 148/79 H Blood Pressure Mean [Right Arm] 102 Blood Pressure Source [Right Arm] Automatic Cuff Blood Pressure Position [Right Arm] Sitting 02 Sat by Pulse Oximetry 95 Oxygen Delivery Method Room Air Orders (Tests/Meds): ORDERS Category Date Time Status POCUS Point of Care (ER Only) Stat Exams 06/03/24 17:32 Ordered Medical Decision Narrative: 39-year-old female who had carpal tunnel release surgery yesterday, 06/02 presenting with right leg pain. Patient states that started this morning. Pain and cramping in her right leg. No outward swelling, redness, etc. She states she feels that she can feel different areas of swelling throughout the leg. Pain is mild in intensity, does not radiate, she took tramadol, this did not seem to help. No other associated symptoms. History was obtained via conversation with patient. On arrival, patient hemodynamically stable, alert, oriented x4, appropriate, GCS 15, moving all extremities spontaneously, pupils equal and reactive to light. Full physical exam performed and significant for very well-appearing female who is in no acute distress. Right lower extremity appears symmetric to the left lower extremity. Compartments are soft, nontender. No tenderness with range of motion. Patient ambulatory. Pulses equal and symmetric. Also neurologically intact. No palpable cord, erythema, etc. Differential includes DVT, superficial venous thrombosis, muscle spasms, radiculopathy, among others. Bedside [id number] ultrasound performed, no evidence of right lower extremity DVT. Because of this, patient deemed appropriate for outpatient management. Recommended she take 81 mg aspirin and then follow-up with her family doctor. She is agreeable to this. Because patient at baseline without signs or symptoms of clinical decompensation, deemed appropriate for discharge. Results were relayed to patient who voiced understanding and were agreeable to outpatient management and follow up. I discussed my clinical impression with patient and answered all questions. At this time, the evidence for any other entities in the differential is insufficient to warrant any further testing or ED observation. This was explained as well. Advisory was given that persistent or worsening symptoms require further evaluation. I confirmed the understanding of this discussion. Extraction Machine Operator disclaimer Much of this encounter note is an electronic mathematician spoken language to printed text. Electronic mathematician of the spoken language may permit errors. Although I have reviewed the note, some errors may still exist. Procedures Limited Ultrasound Indication:: Limited DVT ultrasound Indication: Limited compression ultrasonography of the right lower extremity was performed to evaluate for non-compressibility of the deep veins in the patient. The ultrasound was performed with the following indications, as noted in the H&P: Right lower extremity pain Identified structures: Right common femoral vein, femoral vein, popliteal vein were examined. Findings: Lower Extremity: Right CFV: Good compressibility Right FV: Good compressibility Right Popliteal vein: Good compressibility Impression: Normal right lower extremity ultrasound with no evidence of DVT. No evidence of soft tissue edema or any other abnormality Images were saved to permanent archive The study was technically adequate CPT: 54141-91-TC 37871-29-SO 49152-27 (complete bilateral study) This study was performed by me, and I personally interpreted all images/videos. Based on my clinical judgement, these images were adequate and not necessitate further imaging Critical Care Critical Care Time Critical Care Time: No
[2024-06-03 18:00] VITALS: BP 127/82; PULSE 79; RESP 18; TEMP 36.7; O2SAT 95
== END 2024-06-03 18:01 | disposition home or self-care (01) ==
PROVIDERS: Emergency Provider Emergency Medicine; PCP Family Medicine
DX: M79.604 Pain in right leg (principal); I10 Essential (primary) hypertension; E03.9 Hypothyroidism, unspecified; R22.41 Localized swelling, mass and lump, right lower limb; J45.909 Unspecified asthma, uncomplicated
CPT/HCPCS: 99284

== ENCOUNTER 2024-07-16 10:46 | Outpatient (CLI) | payer MEDICARE, SELFPAY ==
--- NOTE | 2024-07-16 10:53 | MM_ITS ---
PROCEDURE INFORMATION: Exam: MG Bilateral Screening 3D Mammography Exam date and time: 07/16/2024 10:40 AM Age: 39 years old Clinical indication: Screening examination TECHNIQUE: Imaging protocol: Bilateral Screening tomosynthesis and 2D mammography including computer-aided detection (CAD) when performed. COMPARISON: MG Stereotactic Left Breast Biopsy 02/12/2024 9:00 AM FINDINGS: MAMMOGRAPHY: Breast composition: There are scattered areas of fibroglandular density. Mass: None. Architectural distortion: None. Calcifications: No suspicious calcifications. Asymmetric density: None. Skin thickening: None. Axillary adenopathy: None. IMPRESSION: No mammographic evidence of malignancy. Annual screening is recommended unless otherwise clinically indicated. ASSESSMENT: BI-RADS Category 1: Negative.
== END 2024-07-16 23:59 | disposition home or self-care (01) ==
LOC: RAD 10:47
PROVIDERS: PCP Family Medicine; Visit Provider Nurse Practitioner Obstetrics & Gynecology
DX: Z12.31 Encounter for screening mammogram for malignant neoplasm of breast (principal)
CPT/HCPCS: 77063; 77067

== ENCOUNTER 2024-08-02 10:24 | Emergency (ER) | payer MEDICARE, SELFPAY ==
[2024-08-02 12:00] VITALS: BP 144/84; PULSE 84; RESP 19; TEMP 37.1; O2SAT 97; BMI 40.6
--- NOTE | 2024-08-02 12:06 | EXP.UTC ---
Discharge Plan Disposition Patient Disposition: Home, Self-Care Condition: Good Prescriptions Prescriptions: New azithromycin [Zithromax] 250 mg tablet 250 mg PO UD DOSE PK Qty: 6 0RF Rx Instructions: Take two (2) tablets today, then one (1) tablet days #2 thru #5 benzonatate 100 mg capsule 100 mg PO TIDP PRN (Reason: Cough) Qty: 30 0RF methylprednisolone 4 mg Tablets,Dose Pack 4 mg PO DIRECTED 6 Days Qty: 21 0RF Rx Instructions: Take 1 pack as directed for 6 days No Action Elmiron 100 mg capsule 100 mg PO TID Patient Comments: TAKE ONE CAPSULE BY MOUTH THREE TIMES DAILY gabapentin 600 mg tablet 600 mg PO DAILY atorvastatin 20 mg tablet 20 mg PO DAILY Patient Comments: TAKE 1 TABLET BY MOUTH ONCE DAILY meloxicam 15 mg tablet 15 mg PO DAILY olanzapine 5 mg tablet 5 mg PO DAILY levothyroxine 75 mcg tablet 75 mcg PO DAILY lithium carbonate 300 mg capsule 300 mg PO DAILY buspirone 30 mg tablet 30 mg PO DAILY montelukast 10 mg tablet 10 mg PO DAILY hydroxyzine pamoate 25 mg capsule 25 mg PO BID Patient Comments: TAKE 1 CAPSULE BY MOUTH TWICE DAILY NEEDED FOR ANXIETY duloxetine 60 mg capsule,delayed release(DR/EC) 60 mg PO DAILY mirabegron [Myrbetriq] 50 mg tablet extended release 24 hr 50 mg PO DAILY Patient Comments: TAKE 1 TABLET BY MOUTH EVERY DAY Vraylar 1.5 mg capsule 1.5 mg PO DAILY Patient Comments: TAKE 1 CAPSULE BY MOUTH DAILY Referrals Follow up/Referrals: Javy Valencia MD [Primary Care Provider] - See instructions Activity Restrictions/Add. Instructions Additional Instructions/Restrictions: Drink plenty of fluids. Take tylenol or ibuprofen for pain or fever. Take the medications as directed. Follow up with your regular doctor. GO TO THE ER FOR ANY WORSENING SYMPTOMS Clinical Impressions Clinical Impression: Acute bronchitis, Sinusitis, Acute viral syndrome Stand Alone Forms Stand Alone Forms: Work/School Release Instructions Patient Instructions: DI for Sinusitis, DI for Acute Bronchitis, Azithromycin Print Language Print Language: Kyrgyz Discharge ED Provider: Jaren Georges [facility] [place] General Stated complaint: cold lung and back pain Mode of Arrival: Ambulatory Source of Information: Patient Limitations: No Limitations Time Seen by Provider: 08/02/24 12:06 Description of Symptoms (Recalled from Triage Doc. by RN): PATIENT C/O SINUS PRESSURE/DRAINAGE AND COUGH X 3 DAYS HEENT Symptoms (Recalled from RN notes): Yes Resp Symptoms (Recalled from RN notes): Yes Skin Symptoms (Recalled from RN notes): No MS Symptoms (Recalled from RN notes): No Functional Status (Recalled from RN notes): WNL Related Data Home Medications ?Medication ?Instructions ?Recorded ?Confirmed atorvastatin 20 mg tablet 20 mg PO DAILY 08/02/24 08/02/24 buspirone 30 mg tablet 30 mg PO DAILY 08/02/24 08/02/24 cariprazine 1.5 mg capsule 1.5 mg PO DAILY 08/02/24 08/02/24 (Vraylar) duloxetine 60 mg capsule,delayed 60 mg PO DAILY 08/02/24 08/02/24 release gabapentin 600 mg tablet 600 mg PO DAILY 08/02/24 08/02/24 hydroxyzine pamoate 25 mg capsule 25 mg PO BID 08/02/24 08/02/24 levothyroxine 75 mcg tablet 75 mcg PO DAILY 08/02/24 08/02/24 lithium carbonate 300 mg capsule 300 mg PO DAILY 08/02/24 08/02/24 meloxicam 15 mg tablet 15 mg PO DAILY 08/02/24 08/02/24 mirabegron 50 mg tablet,extended 50 mg PO DAILY 08/02/24 08/02/24 release 24 hr (Myrbetriq) montelukast 10 mg tablet 10 mg PO DAILY 08/02/24 08/02/24 olanzapine 5 mg tablet 5 mg PO DAILY 08/02/24 08/02/24 pentosan polysulfate sodium 100 mg 100 mg PO TID 08/02/24 08/02/24 capsule (Elmiron) Previous Rx's ?Medication ?Instructions ?Recorded azithromycin 250 mg tablet 250 mg PO UD DOSE PK #6 tabs 08/02/24 (Zithromax) benzonatate 100 mg capsule 100 mg PO TIDP PRN Cough #30 caps 08/02/24 methylprednisolone 4 mg tablets in 4 mg PO DIRECTED 6 days #21 tabs 08/02/24 a dose pack Allergies Allergy/AdvReac Type Severity Reaction Status Date / Time codeine Allergy Intermediate rash, Verified 07/06/24 11:18 breathing issues vancomycin Allergy Intermediate Verified 07/06/24 11:18 Fish Containing Products Allergy Verified 07/06/24 11:18 fish derived Allergy Verified 07/06/24 11:18 Penicillins Allergy Verified 07/06/24 11:18 Worker's Comp Is this a Worker's Comp case?: No [facility] Disclaimer: The information contained in this section may have been updated after the patient was seen, as this information can be updated by other users. Medical History (Updated 08/02/24 @ 12:24 by Jaren Georges APRN) Interstitial cystitis History of appendicitis Asthma Allergies Overactive bladder Hypertension Thyroid activity decreased Anxiety and depression Surgical History (Updated 07/06/24 @ 11:33 by JOANNA Vanegas) History of hysteroscopy History of appendectomy History of cholecystectomy H/O section Family History Other Family history of hypertension Social History Smoking Status: Never smoker alcohol intake: never substance use type: denies use current occupational status: disabled Travel in the last 8 weeks: None ROS Obtained: Yes All systems reviewed & no additional complaints except as documented Constitutional Constitutional: Reports poor appetite Eyes Eyes: Reports system reviewed and no additional complaints, except as documented ENT Ears, Nose, Mouth, and Throat: Reports as per HPI Cardiovascular Cardiovascular: Reports system reviewed and no additional complaints, except as documented and Denies chest pain Respiratory Respiratory: Denies shortness of breath, Reports chest congestion, Reports cough, Denies stridor and Denies wheezing Gastrointestinal Gastrointestingal: Reports system reviewed and no additional complaints, except as documented; Denies abdominal pain, diarrhea or vomiting Musculoskeletal Musculoskeletal: Reports system reviewed and no additional complaints, except as documented and Denies arthralgias Integumentary/Breasts Skin/Breast: Reports system reviewed and no additional complaints, except as documented and Denies rash Neurologic Neurologic: Denies paresthesias Allergic/Immunologic Allergic/Immunologic: Denies wheezing Physical Exam General General appearance: alert and in no apparent distress Eye Eye exam: Present normal appearance, PERRL and EOMI ENT ENT exam: Present mucous membranes moist and normal external ear exam Expanded ENT Exam External ear exam: Present normal external inspection TM/Canal exam: Bilateral TM: erythema and bulging Nose exam: Absent sinus tenderness Nasal speculum exam: Bilateral: normal Mouth exam: Present normal external inspection; Absent drooling Teeth exam: Present normal inspection Throat exam: Present tonsillar erythema and tonsillomegaly Neck Neck exam: Present normal inspection, full ROM and trachea midline; Absent tenderness, lymphadenopathy or thyromegaly Chest Chest inspection: Present normal inspection and symmetric chest wall rise; Absent tenderness or rash Respiratory Respiratory exam: Present normal lung sounds bilaterally; Absent respiratory distress, wheezes, stridor or accessory muscle use Cardiovascular Cardiovascular exam: Present regular rate, normal rhythm and normal heart sounds Abdominal Exam Abdominal exam: Present soft; Absent distention, tenderness, guarding, rebound or rigidity Extremities Exam Extremities exam: Present normal inspection, full ROM and normal capillary refill; Absent tenderness or calf tenderness Back Exam Back exam: Present normal inspection and full ROM; Absent tenderness Neurological Exam Neurological exam: Present alert and oriented X3 Psychiatric Psychiatric exam: Present normal affect and normal mood Skin Skin exam: Present warm, dry, intact and normal color Lymphatic Lymphatic Findings: no adenopathy Medical Decision Making Medical Records Medical records reviewed: No I reviewed the patient's medical records. Screening: Per USPSTF and CDC recommendations, given the prevalence of disease in our region, it is our hospital?s policy to screen for HIV and viral Hepatitis for all patients aged 18 and over and those with ongoing risk factors. Edward Inquiry Pt receiving controlled substance: No Vital Signs: 08/02/24 12:00 Temperature 98.8 F Temperature Source Oral Pulse Rate [Left Brachial] 84 Respiratory Rate 19 Blood Pressure [Left Arm] 144/84 H Blood Pressure Mean [Left Arm] 104 Blood Pressure Source [Left Arm] Automatic Cuff Blood Pressure Position [Left Arm] Sitting 02 Sat by Pulse Oximetry 97 Oxygen Delivery Method Room Air Lab Data Lab results reviewed: Yes I reviewed the patient's lab results.
[2024-08-02 12:30] VITALS: BP 144/84; PULSE 84; RESP 19; TEMP 37.1; O2SAT 97
[2024-08-02 12:34] LABS: Coronavirus 19, PCR Not Detected (NotDetected); Influenza A, PCR Not Detected (NotDetected); Influenza B, PCR Not Detected (NotDetected)
== END 2024-08-02 12:31 | disposition home or self-care (01) ==
PROVIDERS: Emergency Provider Nurse Practitioner Family; PCP Family Medicine
DX: J20.9 Acute bronchitis, unspecified (principal); J01.80 Other acute sinusitis; B34.9 Viral infection, unspecified
CPT/HCPCS: 87636; 99213; G0381

== ENCOUNTER 2024-08-23 10:15 | Outpatient (CLI) | payer MEDICARE, SELFPAY ==
[2024-08-23 18:51] LABS: Basophils # 0.1 K/mm3 (0-0.2); Basophils % 0.5 % (0.1-2.0); Eosinophils # 0.5 K/mm3 (0.0-0.4); Eosinophils % 4.6 % (0.1-12.0); Hematocrit 40.7 % (37.0-47.0); Hemoglobin 13.2 g/dL (12.2-16.2); Lymphocytes # 1.9 K/mm3 (0.7-4.5); Lymphocytes % 17.7 % (10-50); Mean Corpuscular HGB Conc 32.4 g/dL (31.8-35.4); Mean Corpuscular Hemoglobin 30.3 pg (27.0-31.2); Mean Corpuscular Volume 93.6 fl (81-99); Mean Platelet Volume 8.7 fl (7.4-10.4); Monocytes # 0.3 K/mm3 (0.1-1.0); Monocytes % 3.2 % (1.7-9.3); Neutrophils # 7.9 K/mm3 (1.8-7.8); Neutrophils % 74.1 % (37.0-80.0); Platelet Count 296 K/mm3 (142-424); Red Blood Count 4.35 M/mm3 (4.20-5.40); Red Cell Distribution Width 13.1 % (11.5-17.5); White Blood Count 10.6 K/mm3 (4.8-10.8)
[2024-08-23 19:00] LABS: Albumin Level 4.3 g/dl (3.5-5.0); Chloride 103 mmol/L (98-107); Potassium 4.4 mmoL/L (3.5-5.1); Sodium 141 mmol/L (136-145)
[2024-08-23 19:03] LABS: Alanine Aminotransferase 34 U/L (12-78); Albumin/Globulin Ratio 1.7 (1.1-1.8); Alkaline Phosphatase 57 U/L (38-126); Anion Gap 13.4 mEq/L (5-15); Aspartate Amino Transferase 35 U/L (14-36); Bilirubin,Total 0.7 mg/dl (0.2-1.3); Blood Urea Nitrogen 11 mg/dl (7-17); Calcium 9.6 mg/dl (8.4-10.2); Carbon Dioxide 29 mmol/L (22.0-30.0); Estimated Glomerular Filt Rate 61 ml/min (>60); GFR (African American) 74 ML/MIN (>60); Globulin 2.5 g/dL (1.3-3.2); Glucose 78 mg/dl (74-100); Total Protein,Serum 6.8 g/dl (6.3-8.2)
[2024-08-23 19:16] LABS: T4 (Thyroxine) 10.3 ug/dl (5.53-11.0)
[2024-08-23 19:30] LABS: Thyroid Stimulating Hormone 4.19 uIU/mL (0.465-4.68)
[2024-08-25 08:21] LABS: Lithium (Eskalith(R)) 1.3 mmol/L (0.5-1.2)
== END 2024-08-23 23:59 | disposition home or self-care (01) ==
LOC: LAB.DROPOF 08-24 09:16
PROVIDERS: PCP Family Medicine; Visit Provider Family Medicine
DX: R53.83 Other fatigue (principal); Z79.899 Other long term (current) drug therapy
CPT/HCPCS: 80053; 80178; 84436; 84443; 85025

== ENCOUNTER 2024-08-26 10:09 | Outpatient (CLI) | payer MEDICARE, SELFPAY ==
[2024-08-26 12:27] LABS: Vitamin B12 438 pg/mL (239-931)
[2024-08-26 12:35] LABS: Folate > 20.00 ng/mL
[2024-09-07 11:12] LABS: Narcolepsy DQA1*01:02 Negative (.); Narcolepsy DQB1*06:02 Negative (.)
== END 2024-08-26 23:59 | disposition home or self-care (01) ==
PROVIDERS: PCP Family Medicine; Visit Provider Specialist
DX: G47.10 Hypersomnia, unspecified (principal); I10 Essential (primary) hypertension; G47.30 Sleep apnea, unspecified; G47.19 Other hypersomnia; R53.83 Other fatigue; G47.419 Narcolepsy without cataplexy
CPT/HCPCS: 36415; 81383; 82607; 82746

== ENCOUNTER → 2024-11-03 07:03 | Outpatient (CLI) | payer MEDICARE, SELFPAY | LOC: SL 07:04 | PROVIDERS: PCP Specialist; Visit Provider Specialist | DX: G47.30 Sleep apnea, unspecified (principal); R53.83 Other fatigue; G47.10 Hypersomnia, unspecified; I10 Essential (primary) hypertension | CPT/HCPCS: G0399 ==

== ENCOUNTER 2025-02-17 09:14 | Outpatient (CLI) | payer MEDICARE, SELFPAY ==
--- OUTSIDE RECORDS SUMMARY | 2025-02-17 09:16 | XMS_ITS ---
Author Organization Unknown TREATMENT PLAN [facility] Start Date Provider Encounter for Check-up [id number] [facility]
--- OUTSIDE RECORDS SUMMARY | 2025-02-17 09:17 | XMS_ITS | Data Portability ---
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 limb 627252227 Active 2023 Ade Garza, JOSE CARLOS [address] [facility],[address], [place], [address], [place] - [place] & [place] 16:22:13 Problem Notes None recorded. Procedures Surgical History Date Name Laterality Status Provider Name and Address Organization Details Recorded Time 07/06/20 Appendectomy completed sara fletchercraft TRA[place] - [facility] - [place] & [place] 08/08/2022 11:55:54 section completed Vanessa Ovi [place] - [place] - [place] & [place] 07/26/2022 11:15:08 Gallbladder Surgery completed Vanessa Salguerot [place] - [place] - [place] & [place] 07/26/2022 11:15:15 Carpal tunnel surgery completed Vnaessa Jose Mt [place] - [place] - [place] & [place] 07/26/2022 11:15:43 Imaging Results Imaging Date Name Status LastModified by Organization Details LastModified Time 03/04/2024 - needle localization lt completed [email or web address] , [place], [address], 07/12/2024 08:04:05 03/04/2024 - needle localization lt completed [email or web address] [address] , [place], [address], 07/12/2024 08:04:05 09/30/2024 pelvis w/bilat hips 2 views completed [address] [facility] [address], [place], [address], 10/04/2024 09:51:13 09/30/2024 lumbar spine 2 to 3V completed [address] [facility] [address], [place], [address], 10/04/2024 09:51:14 09/30/2024 MRI, lumbar spine, w/o contrast completed [address] [facility] [address], [place], [address], 10/04/2024 10:01:14 Procedure Notes None recorded. Medical Equipment None Reported. Allergies Allergen ID Allergen Name Allergen Category Reaction Reaction Severity Criticality Documentation Date Start Date Code Code System Note Provider Name and Address Organization Details Recorded Time 37359 shellfish derived food,medi cation swelling severe Not available 07/26/2022 12078 UNK Vanessa Dior [facility], [facility] & [place] 2 11:12:26 98594 Product containin g penicilli n (product) medicatio n rash mild Not available 07/26/2022 44211 8001 SNOMED Vanessa Dior [facility], [facility] & [place] 2 11:12:44 26352 codeine medicatio n itching rash mild mild Not available 07/26/2022 2670 RxNorm Vanessa Dior [facility], [facility] & [place] 2 11:13:15 04023 vancomyci n medicatio n dyspnea headache moderate moderate Not available 07/26/2022 86483 RxNorm Vanessa Dior [facility], [facility] & [place] 2 11:14:01 Medications Name Sig Start Date Stop Date Status Note LastModified by Organization Details LastModified Time quetiapine 25 mg tablet TAKE ONE TABLET BY MOUTH ONCE DAILY 04/26 completed Not Available Not Available Not Available cyclobenzap rine 10 mg tablet TAKE ONE TABLET BY MOUTH THREE TIMES DAILY 08/08 completed Not Available Not Available Not Available fluconazole 100 mg tablet TAKE 1 TABLET BY MOUTH ONCE DAILY FOR 10 DAYS. 08/08 completed Not Available Not Available Not Available atorvastati n 40 mg tablet Take 1 tablet every day by oral route for 90 days. 05/12 completed Not Available Not Available Not Available potassium chloride ER 10 mEq capsule,ext ended release 10/16 completed Not Available Not Available Not Available gabapentin 600 mg tablet TAKE 1 TABLET BY MOUTH EVERY 12 HOURS DIRECTED active Not Available Not Available No t Available doxycycline hyclate 100 mg capsule TAKE 1 CAPSULE BY MOUTH TWICE DAILY FOR 7 DAYS 03/12 completed Not Available Not Available Not Available atorvastati n 20 mg tablet TAKE 1 TABLET BY MOUTH ONCE DAILY active Not Available Not Available No t Available quetiapine 300 mg tablet 03/08 completed Not Available Not Available Not Available clindamycin HCl 300 mg capsule 10/16 completed Not Available Not Available Not Available triamcinolo ne acetonide 0.5 % topical cream APPLY TO THE AFFECTED AREA(S) TWICE DAILY FOR 10 DAYS. 08/08 completed Not Available Not Available Not Available cetirizine 10 mg tablet TAKE ONE TABLET BY MOUTH EVERY DAY 03/12 completed Not Available Not Available Not Available azithromyci n 250 mg tablet TAKE 2 TABLETS BY MOUTH ON DAY 1, THEN TAKE 1 TABLET DAILY ON DAYS 2-5 08/26 completed Not Available Not Available Not Available ibuprofen 800 mg tablet TAKE 1 TABLET BY MOUTH EVERY 8 HOURS NEEDED FOR MODERATE PAIN 08/26 completed Not Available Not Available Not Available hydrocodone 5 mg-acetamin ophen 325 mg tablet TAKE 1--2 TABLETS BY MOUTH EVERY 6 HOURS NEEDED FOR PAIN SCALE 1--5 04/26 completed Not Available Not Available Not Available meloxicam 15 mg tablet TAKE 1 TABLET BY MOUTH ONCE DAILY active Not Available Not Available No t Available prednisone 20 mg tablet TAKE 3 TABLETS BY MOUTH ONCE DAILY FOR 5 DAYS 03/12 completed Not Available Not Available Not Available gabapentin 400 mg capsule TAKE 1 CAPSULE BY MOUTH EVERY 8 TO 12 HOURS DIRECTED 08/26 completed Not Available Not Available Not Available quetiapine 200 mg tablet TAKE 1 TABLET BY MOUTH AT BEDTIME 08/26 completed Not Available Not Available Not Available olanzapine 5 mg tablet TAKE 1 TABLET BY MOUTH AT BEDTIME DISCONTIN UE SEROQUEL active Not Available Not Available No t Available Elmiron 100 mg capsule TAKE 1 CAPSULE BY MOUTH THREE TIMES DAILY active Not Available Not Available No t Available olanzapine 10 mg tablet TAKE 1 TABLET BY MOUTH AT BEDTIME active Not Available Not Available No t Available metronidazo le 500 mg tablet TAKE 1 TABLET BY MOUTH THREE TIMES DAILY FOR 5 DAYS 03/12 completed Not Available Not Available Not Available ciprofloxac in 500 mg tablet TAKE 1 TABLET BY MOUTH EVERY 12 HOURS FOR 7 DAYS 04/29 completed Not Available Not Available Not Available omeprazole 40 mg capsule,del ayed release Take ONE capsule by MOUTH DAILY 05/08 completed Not Available Not Available Not Available doxycycline monohydrate 100 mg tablet TAKE 1 TABLET BY MOUTH TWICE DAILY FOR 10 DAYS 02/17 completed Not Available Not Available Not Available tramadol 50 mg tablet TAKE ONE TABLET BY MOUTH EVERY 6 HOURS NEEDED FOR POST OP PAIN 08/26 completed Not Available Not Available Not Available acyclovir 800 mg tablet Take 1 tablet 5 times a day by oral route for 7 days. 02/22 completed Not Available Not Available Not Available levothyroxi ne 75 mcg tablet TAKE 1 TABLET BY MOUTH ONCE DAILY active Not Available Not Available No t Available meloxicam 7.5 mg tablet TAKE 1 TABLET BY MOUTH ONCE DAILY 08/26 completed Not Available Not Available Not Available terbinafine HCl 250 mg tablet TAKE 1 TABLET BY MOUTH DAILY. 08/08 completed Not Available Not Available Not Available propranolol 10 mg tablet TAKE 1 TABLET BY MOUTH THREE TIMES DAILY NEEDED FOR ANXIETY active Not Available Not Available No t Available lithium carbonate 300 mg capsule TAKE 1 CAPSULE BY MOUTH THREE TIMES DAILY active Not Available Not Available No t Available benzonatate 100 mg capsule TAKE ONE CAPSULE BY MOUTH THREE TIMES DAILY NEEDED FOR COUGH 08/26 completed Not Available Not Available Not Available levothyroxi ne 50 mcg tablet TAKE ONE TABLET BY MOUTH EVERY DAY 03/12 completed Not Available Not Available Not Available buspirone 30 mg tablet TAKE 1/2 (ONE-HALF ) TABLET BY MOUTH THREE TIMES DAILY active Not Available Not Available No t Available nystatin 100,000 unit/gram topical cream APPLY TO THE AFFECTED AREA TWICE DAILY FOR 14 DAYS. 08/08 completed Not Available Not Available Not Available promethazin e 25 mg tablet TAKE 1 TABLET BY MOUTH EVERY 6 TO 8 HOURS FOR 10 DAYS 07/31 completed Not Available Not Available Not Available nystatin-tr iamcinolone 100,000 unit/g-0.1 % topical cream APPLY TO THE AFFECTED AREA 2 TIMES DAILY 08/08 completed Not Available Not Available Not Available montelukast 10 mg tablet TAKE 1 TABLET BY MOUTH ONCE DAILY active Not Available Not Available No t Available hydroxyzine HCl 25 mg tablet Take 1 tablet 3 times a day by oral route. 03/12 completed Not Available Not Available Not Available levofloxaci n 750 mg tablet TAKE 1 TABLET BY MOUTH ONCE DAILY FOR 5 DAYS 03/12 completed Not Available Not Available Not Available methylpredn isolone 4 mg tablets in a dose pack TAKE ACCORDING TO PACKAGE INSTRUCTI ONS --TAKE WITH FOOD-- -- FINISH ALL MEDICINE -- 08/26 completed Not Available Not Available Not Available albuterol sulfate HFA 90 mcg/actuati on aerosol inhaler active Not Available Not Available Not Available norethindro ne (contracept alex) 0.35 mg tablet TAKE 1 TABLET BY MOUTH ONCE DAILY 05/08 completed Not Available Not Available Not Available ondansetron 4 mg disintegrat ing tablet DISSOLVE ONE tablet ON top of TONGUE EVERY 4 TO 6 HOURS NEEDED 03/12 completed Not Available Not Available Not Available cefdinir 300 mg capsule TAKE 1 CAPSULE BY MOUTH TWICE DAILY 10/16 completed Not Available Not Available Not Available clotrimazol e 1 % topical cream APPLY TO ON THE LEG AND UNDER TO THE ARM TWICE DAILY FOR FOURTEEN DAYS 08/08 completed Not Available Not Available Not Available buspirone 15 mg tablet TAKE ONE TABLET BY MOUTH TWICE DAILY 03/12 completed Not Available Not Available Not Available hydroxyzine pamoate 25 mg capsule TAKE 1 CAPSULE BY MOUTH TWICE DAILY NEEDED FOR ANXIETY active Not Available Not Available No t Available Sprintec (28) 0.25 mg-0.035 mg tablet TAKE ONE TABLET DAILY, SKIP inactive pills. (TWO packs every 42 DAYS) 08/08 completed Not Available Not Available Not Available cyclobenzap rine 5 mg tablet TAKE 1 TABLET BY MOUTH EVERY 12 HOURS NEEDED active Not Available Not Available No t Available rosuvastati n 40 mg tablet TAKE 1 TABLET BY MOUTH EVERY DAY active Not Available Not Available No t Available nitrofurant oin monohydrate /macrocryst als 100 mg capsule 03/08 completed Not Available Not Available Not Available duloxetine 60 mg capsule,del ayed release TAKE 1 CAPSULE BY MOUTH ONCE DAILY active Not Available Not Available No t Available quetiapine 50 mg tablet DAILY 03/08 completed Not Available Not Available Not Available hydrochloro thiazide 12.5 mg tablet TAKE ONE TABLET BY MOUTH EVERY DAY 08/26 completed Not Available Not Available Not Available Myrbetriq 50 mg tablet,exte nded release TAKE 1 TABLET BY MOUTH EVERY DAY active Not Available Not Available No t Available Vraylar 1.5 mg capsule TAKE 1 CAPSULE BY MOUTH DAILY 08/26 completed Not Available Not Available Not Available Vitals Date Recorded Body height Body mass index (BMI) Body weight Body temperature Oxygen saturation Oxygen saturation in Arterial blood by Pulse oximetry Heart rate Systolic blood pressure Diastolic blood pressure Provider Name and Address Organization Details Last Updated DateTime 4 154.94 cm 40.5 kg/m2 96952.4 9 g 97.8 [degF] 96 % 96 % 83 /min 121 mm[Hg] 86 mm[Hg] [facility] & [place] 4 13:23:45 Date Recorded Body height Body mass index (BMI) Body weight Body temperature Oxygen saturation Oxygen saturation in Arterial blood by Pulse oximetry Heart rate Systolic blood pressure Diastolic blood pressure Provider Name and Address Organization Details Last Updated DateTime 4 154.94 cm 41.2 kg/m2 57269.4 2 g 97.1 [degF] 97 % 97 % 84 /min 106 mm[Hg] 78 mm[Hg] [facility] & [place] 4 14:03:29 Date Recorded Body height Body mass index (BMI) Body weight Body temperature Oxygen saturation Oxygen saturation in Arterial blood by Pulse oximetry Heart rate Systolic blood pressure Diastolic blood pressure Provider Name and Address Organization Details Last Updated DateTime 5 154.94 cm 41.5 kg/m2 09252.8 8 g 97.8 [degF] 99 % 99 % 84 /min 111 mm[Hg] 61 mm[Hg] [facility] & [place] 5 10:29:56 Date Recorded Body height Body mass index (BMI) Body weight Body temperature Oxygen saturation Oxygen saturation in Arterial blood by Pulse oximetry Heart rate Systolic blood pressure Diastolic blood pressure Provider Name and Address Organization Details Last Updated DateTime 5 154.94 cm 41.9 kg/m2 575537. 07 g 97.1 [degF] 94 % 94 % 87 /min 121 mm[Hg] 80 mm[Hg] [facility] & [place] 5 11:40:02 Date Recorded Body height Body mass index (BMI) Body weight Body temperature Oxygen saturation Oxygen saturation in Arterial blood by Pulse oximetry Heart rate Systolic blood pressure Diastolic blood pressure Provider Name and Address Organization Details Last Updated DateTime 5 154.94 cm 43.8 kg/m2 113810. 71 g 97.2 [degF] 100 % 100 % 68 /min 148 mm[Hg] 73 mm[Hg] Kristi RAVI [facility] & [place] 5 09:56:52 Social History Question Answer Notes LastModified by [employer] Details LastModified Time Tobacco Smoking Status Never Smoker Vanessa barraza, TRAV [facility] & [place] 07/26/2022 11:14:53 What Is Your Level Of Caffeine Consumption? Occasional API-13 Information not available 11/13/2023 Sex: Unknown Functional Status Question Answer Note LastModified by [employer] Details LastModified Time Do you use any illicit or recreational drugs? No Information not available 07/26/2022 What is your level of alcohol consumption? None Information not available 07/26/2022 Mental Status None recorded. Family History Relationship Description Onset Age of this Age Resolved Age Notes LastModified by Organization Details LastModified Time Father Heart disease [email or web address] Not available 2021 11:14:43 Medical History Condition Response Anxiety Disorder Y Hyperthyroidism Y High Cholesterol Y Psychiatric/Mental Health Condition Y Headaches Y Back Problems Y Hypertension Y Kidney or Bladder Problems Y Gynecological HistoryNo gynecological history recorded. Obstetrics History GPAL:G 0 P 0 0 0 0 Immunizations Vaccine Type Date Status Note Provider Nam e and Address Organization Details Recorded Time COVID-19, mRNA, LNP-S, PF, 100 mcg/0.5mL dose or 50 mcg/0.25mL dose 05/15/2021 completed Vanessa Dior null, [place] - [facility] & [place] 07/26/2022 11:11:52 COVID-19, mRNA, LNP-S, PF, 100 mcg/0.5mL dose or 50 mcg/0.25mL dose 03/22/2021 completed Vanessa Dior null, TRA[place] - [facility] & [place] 07/26/2022 11:11:52 Tdap 06/30/2023 completed Alysia Sahu null, [place] - [facility] & [place] 02/23/2024 15:48:32 Past Encounters Encounter ID Performer Location Encounter Start Date Encounter Closed Date Diagnosis/Indication Diagnosis SNOMED-CT Code Diagnosis ICD10 Code Diagnosis Note [id number] Ade Garza NP [facility] [address] [place] [address] 07/26/2022 10:48:59 07/26/2022 11:48:53 Acquired hypothyroidism 181103968 E03.9 Mixed hyperlipidemia 267 085693 E78.2 Fatigue 74832431 R53.83 Blood gluc ose outside reference range 933134596 R73.09 Carpal soila singh syndrome 48564390 G56.02 Allergic rhinitis 116358 04 J30.9 [id number] Aren Irizarry MD [facility] [address] [address] 08/08/2022 11:39:15 08/08/2022 12:08:13 Lumbar spondylosis 534205960 M47.816 Myofascial pain 84154210 9 M79.10 Degenerati on of lumbar intervertebral disc 72014579 M51.36 Spinal wilbert nosis of lumbar region 72439972 M99.53 M48.061 Carpal soila singh syndrome of left wrist 2065428330 18114 G56.02 [id number] Aren Irizarry MD [facility] [address] [address] 10/15/2022 13:21:46 10/15/2022 14:09:07 Lumbar spondylosis 890206470 M47.816 Myofascial pain 22921946 9 M79.10 Degenerati on of lumbar intervertebral disc 39294037 M51.36 Spinal wilbert nosis of lumbar region 59885939 M99.53 M48.061 Bilateral sacroiliitis 6602668382 2129282 M46.1 [id number] SALBADOR LESLIE PA-C [facility] [address] [address] 12/10/2022 13:30:59 12/10/2022 15:33:05 Lumbar spondylosis 588245726 M47.816 Myofascial pain 66681225 9 M79.10 Degenerati on of lumbar intervertebral disc 81823034 M51.36 Spinal wilbert nosis of lumbar region 39455799 M99.53 M48.061 Bilateral sacroiliitis 1087988769 0558280 M46.1 Neuropathy 741716209 G62 .9 [id number] Aren Irizarry MD [facility] [address] [facility] [place] [address] 03/13/2023 14:52:06 03/13/2023 15:51:09 Lumbar spondylosis 032717424 M47.816 Myofascial pain 83365887 9 M79.10 Spinal wilbert nosis of lumbar region 21662731 M99.53 M48.061 Bilateral sacroiliitis 1171259242 2915658 M46.1 Neuropathy 510518059 G62 .9 [id number] [place] [address] 03/12/2023 10:49:41 03/12/2023 11:40:42 Acquired hypothyroidism 310977644 E03.9 Mixed hyperlipidemia 267 716402 E78.2 Blood gluc ose outside reference range 286794435 R73.09 Fatigue 23971261 R53.83 Screening mammography 24 762193 Z12.[id number] [address] 04/29/2023 09:54:34 04/29/2023 10:50:08 Hypokalemia 04034486 E87.6 Acute pyelonephritis 366 44305 N10 [id number] [address] 05/07/2023 10:31:50 05/07/2023 11:20:36 Allergic rhinitis 44164043 J30.9 Acquired hypothyroidism 491445879 E03.9 Mixed hyperlipidemia 267 382584 E78.2 Gastroesop hageal reflux disease without esophagitis 458149030 K21.9 Bipolar disorder 0382874 4 F31.9 Acute pyelonephritis 366 97549 N10 Fatigue 26008511 R53.83 Blood gluc ose outside reference range 521981523 R73.09 [id number] Aren Irizarry MD [facility] [address] [address] 05/08/2023 10:35:40 05/08/2023 11:08:09 Lumbar spondylosis 867973615 M47.816 Myofascial pain 31805352 9 M79.10 Spinal wilbert nosis of lumbar region 98002153 M99.53 M48.061 Bilateral sacroiliitis 4468592970 3654499 M46.1 Neuropathy 838831471 G62 .9 Opioid dependence 029395 00 F11.20 [id number] Cyndy Vieyra DO [address] [address] 05/12/2023 10:39:01 05/12/2023 11:14:39 Acquired hypothyroidism 725170650 E03.9 Mixed hyperlipidemia 267 728272 E78.2 [id number] Aren Irizarry MD [facility] [address] [place] [address] 07/31/2023 09:44:14 07/31/2023 10:02:56 Lumbar spondylosis 645463947 M47.816 Myofascial pain 69418922 9 M79.10 Spinal wilbert nosis of lumbar region 04577884 M99.53 M48.061 Bilateral sacroiliitis 8905782712 4161910 M46.1 Neuropathy 458209780 G62 .9 [id number] Arcenio Mazariegos MD [address] [address] 07/25/2023 09:35:13 07/25/2023 09:54:57 Low back pain 797105178 M54.50 Acute cystitis 86734671 N30.01 [id number] SALBADOR LESLIE PA-C [facility] [address] [address] 10/20/2023 11:02:36 10/20/2023 13:02:44 Lumbar spondylosis 159841312 M47.816 Myofascial pain 52084516 9 M79.10 Spinal wilbert nosis of lumbar region 14129009 M99.53 M48.061 Bilateral sacroiliitis 4329339209 4561549 M46.1 Neuropathy 062218535 G62 .9 [id number] Arcenio Mazariegos MD [place] [address] 10/16/2023 15:58:11 10/16/2023 16:23:37 Obstructive sleep apnea syndrome 26183265 G47.33 Acquired hypothyroidism 481059575 E03.9 Allergic rhinitis 783464 04 J30.9 [id number] Arcenio Mazariegos MD [address] [address] 11/13/2023 10:31:18 11/13/2023 10:53:28 Daytime hypersomnia 8411393220 9102 G47.19 Difficulty sleeping 3013 33834 Z72.820 [id number] Aren Irizarry MD [facility] [address] [address] 12/30/2023 09:16:12 12/30/2023 09:58:51 Lumbar spondylosis 328085972 M47.816 Myofascial pain 94015162 9 M79.10 Spinal wilbert nosis of lumbar region 93833065 M99.53 M48.061 Bilateral sacroiliitis 4832277587 9514075 M46.1 Neuropathy 744647723 G62 .9 [id number] Arcenio Mazariegos MD [address] [address] 01/09/2024 13:47:46 01/09/2024 14:32:30 Herpes zoster 6257784 B02.9 Cellulitis 458046429 L03 .90 Lump in lo wer outer quadrant of left breast 8575384609 88093 N63.23 [id number] Arcenio Mazariegos MD [address] [address] 02/18/2024 14:03:34 02/18/2024 15:02:56 Lesion of breast 410545750 N64.9 Acquired hypothyroidism 810479875 E03.9 Mixed hyperlipidemia 267 706523 E78.2 [id number] Tyrese Butt MD [address] [address] 02/23/2024 15:33:27 02/23/2024 16:17:20 Usual ductal hyperplasia of breast 040839323 N64.89 Needle localizati on left breast biopsy. [id number] Arcenio Mazariegos MD [place] [address] 03/08/2024 16:01:56 03/08/2024 16:26:09 Pain in right lower limb 089282446 M79.604 Acquired hypothyroidism 849141872 E03.9 Mixed hyperlipidemia 267 910400 E78.2 Daytime hypersomnia 3177 605519 5755 G47.19 [id number] STUART Torres [address] [address] 03/15/2024 11:31:48 03/15/2024 11:57:41 Lesion of breast 294203947 N64.9 Lump in lo wer outer quadrant of left breast 0666361671 80483 N63.23 Postoperative visit 1836 07947 Z48.89 S/P needle localizati on left breast biopsy 03/04/2024 [id number] Aren Irizarry MD [facility] [address] [place] [address] 03/18/2024 09:28:45 03/18/2024 11:55:39 Lumbar spondylosis 160236213 M47.816 Myofascial pain 51399752 9 M79.10 Spinal wilbert nosis of lumbar region 05128928 M99.53 M48.061 Bilateral sacroiliitis 7211532209 3698725 M46.1 Neuropathy 947512516 G62 .9 [id number] SALBADOR LESLIE PA-C [facility] [address] [facility] [address] [place] [address] 04/26/2024 13:11:49 04/26/2024 13:48:40 Lumbar spondylosis 265365637 M47.816 Myofascial pain 63808205 9 M79.10 Spinal wilbert nosis of lumbar region [id number] M99.53 M48.061 Bilateral sacroiliitis [id number] M46.1 Neuropathy [id number] G62 .9 [id number] SALBADOR LESLIE PA-C [facility] [address] [facility] [address] [place] [address] 07/01/2024 13:02:40 07/01/2024 13:39:29 Lumbar spondylosis [id number] M47.816 Bilateral sacroiliitis [id number] 9264961 M46.1 - The patient complains of low back and buttock/hi p pain, which worsens with positional changes.- The patient has attempted to make lifestyle modificati ons, but pain continues to impede performing ADLs, thereby negatively affecting quality of life. I think the patient is a good candidate for interventi onal treatment, as their pain has been refractory to conservati ve (PT and at-home exercises/ stretches) and pharmacolo gic approaches .- Lenard delgadillo the previously (12/2023) performed therapeuti c bilateral SI joint injection was successful in decreasing pain by greater than 50% for a few months, I will repeat. The patient may be a good candidate for a minimally- invasive SI joint fusion, but I won't consider unless therapeuti c injections fail to provide significan t benefit for a few months.- I will follow up 2 weeks post-injec tion. Myofascial pain 54317960 9 M79.10 Spinal wilbert nosis of lumbar region 56910433 M99.53 M48.061 Neuropathy 077127403 G62 .9 - It appears that Gabapentin 400 mg Q8-12 hours is effective and well-larry able, yet doesn't adequately control pain. In effort to better control pain, I will change to Gabapentin 600 mg Q12 hours. Pain of le ft shoulder joint [id number] 8446141 M25.512 - The patient complains of left shoulder pain, which impedes ROM, thereby decreasing function.- The patient recently had an ortho consult and has voiced interest in receiving a second opinion, as such I will place a referral.- If the patient is deemed non-surgic al, I will discuss interventi onal treatment options.- The patient is seemingly uninterest ed in another referral to PT and/or a left subacromia l bursa injection. [id number] STUART HERRERA-C [facility] [address] [facility] [address] [place] [address] 08/26/2024 13:04:49 08/26/2024 13:47:01 Low back pain [id number] M54.50 - I will order a lumbar x-ray to assess the degree of degenerati ve changes. Bilateral sacroiliac joint pain [id number] 1738558 M53.3 - I will order a pelvic x-ray to assess the degree of degenerati ve changes. Lumbar spondylosis 04301 0009 M47.816 Bilateral sacroiliitis [id number] 5434096 M46.1 - The patient complains of low back and buttock/hi p pain with intermitte nt radicular symptoms of the BLE, which worsens with positional changes.- The patient has attempted to make lifestyle modificati ons, but pain continues to impede performing ADLs, thereby negatively affecting quality of life. I think the patient is a good candidate for interventi onal treatment, as their pain has been refractory to conservati ve (PT and at-home exercises/ stretches) and pharmacolo gic approaches .- The patient cancelled the previously scheduled procedure (therapeut ic bilateral SI joint injection) due to anxiety. The patient has received significan t (greater than 50% pain relief) benefit in the short-term from a therapeuti c bilateral SI joint injection on numerous occasions. The patient is inquiring about a long-term treatment option, such as surgery. The patient may be a good candidate for a minimally- invasive SI joint fusion.- Prior to pursuing a minimally- invasive SI joint fusion, I will order imaging (lumbar MRI) to rule out other disease processes, which could be contributi ng to pain or better explain the pain pattern.- I had a detailed discussion with the patient about the procedure and the risks/bene fits. Myofascial pain [id number] 9 M79.10 Spinal wilbert nosis of lumbar region 90748612 M99.53 M48.061 Neuropathy 163122146 G62 .9 - Refill Gabapentin 600 mg Q12 hours prn Pain of le ft shoulder joint [id number] 5300829 M25.512 - The patient complains of left shoulder pain, which impedes ROM, thereby decreasing function.- The patient recently had an ortho consult and has voiced interest in receiving a second opinion, as such I will place a referral.-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
--- OUTSIDE RECORDS SUMMARY | 2025-02-17 09:17 | XMS_ITS | Continuity of Care Document ---
Author Organization [facility] & [facility] Address [address] [place] [address] Care Team Providers Care Electrotype Servicer Name Role Phone CONCEPCION GUERRA Primary Care Provider Assessment Encounter Date Assessment Date Assessment LastModified by Organization Details LastModified Time 01/13/2025 01/13/2025 Ms. Hernandez was referred by [...] receiving a second opinion (awaiting an appointment). [email or web address] Not available 01/17/2025 08:04:26 Plan of Treatment Reminders Order Date Submit Date Provider Last Modified By Organization Details Last Modified Time Details Appointments OV EST 15 2024 10:15A Justin LESLIE PA-C Not available Not available Not available OV EST 15 2024 10:15A Justin LESLIE PA-C Not available Not available Not available Lab None recorded. Referral None recorded. Procedures injection , single, diagnosti c or therapeut ic substance , lumbar, sacral (PROC) - Lumbar epidural at L5-S1. 92223. 2024 025 [email or web address] Aren Irizarry MD, [address], [address], [place], [address], 02/03/2025 11:59:14 Surgeries None recorded. Imaging None recorded. Medication Orders cyclobenz aprine 5 mg tablet 2024 025 [facility] [phone] [place], [address], 01/14/2025 13:10:57 gabapenti n 600 mg tablet 2024 025 [facility] [address] [place], [address], 01/14/2025 13:10:58 Patient TargetsNo targets recorded. Patient Instructions Encounter Date Encounter Id Patient Instructions Last Modified By Organization Details Last Modified Time 01/13/2025 [id number] I have discussed in great detail our potential treatment options which would include a rehabilitative approach to care. This program would include medication management, Physical Therapy, consideration for interventional procedures as appropriate, and lifestyle modification (diet, weight loss, exercise, smoking/tobacco cessation, holistic approach including meditation and yoga). The patient understands and agrees prior to proceeding with this plan. _ __ __ __ __ __ __ __ __ __ __ __ __ __ __ __ __ __ __ __ __ __ __ __ __ __ __ __ _ RECORDS REVIEW: As per clinic policy, we will have the patient sign a release to obtain previous imaging and clinical notes. _ __ __ __ __ __ __ __ __ __ __ __ __ __ __ __ __ __ __ __ __ __ __ __ __ __ __ __ _ PSYCH: Pain affecting Neuro-psych behavior was discussed. Discussed about pain psychological counseling as a part of the multimodal approach to pain treatment. _ __ __ __ __ __ __ __ __ __ __ __ __ __ __ __ __ __ __ __ __ __ __ __ __ __ __ __ _ REHABILITATION: Discussed with the patient the importance of diet, daily physical activity and PT. Discussed with the patient the need to be scheduled for physical therapy since physical therapy will prolong the benefits of the procedure and interventions. _ __ __ __ __ __ __ __ __ __ __ __ __ __ __ __ __ __ __ __ __ __ __ __ __ __ __ __ _ I have reviewed patient's MACKENZIE report prior to prescribing Schedule II, III, and IV medications that require review by law. I counseled the patient extensively and informed of the risks of the procedure, including the risk of paralysis, nerve damage, respiratory arrest, arrhythmias, stroke, weakness, and infection, which although very low, could result in or disability. The patient acknowledged to me that they understand and accept these risks. RN EDUCATION Extensive coordination of care provided by RN to educate patient on upcoming procedure and to coordinate obtaining extensive incoming medical records. [place] PDMP reviewed and appropriate. UDS reviewed and consistent with current regimen. Controlled substance contract reviewed and signed line by line. Risks of medication therapy including respiratory depression, , and hazards of operating heavy machinery including automobiles discussed at length. Patient given information with six opioid/Controlled substance safety steps: 1. Never take a prescription pain medication unless it is prescribed for you. 2. Do not take pain medicine with alcohol. 3. Do not take more doses than prescribed. 4. Use with other sedative or anti-anxiety medications can be dangerous. 5. Avoid using prescription pain medication to help you fall asleep. 6. Lock up prescription pain medications. Opioid Contract Discussion: The patient was given a copy of the Clinic Prescription Drug Agreement and was counseled extensively regarding its contents. The patient is to take their pain medication exactly as prescribed. No increases in medications are to be without first contacting the office and explaining the reason behind the increase and getting approval to do so. The patient is not to obtain medications from other providers without first notifying the other provider what they obtain from this clinic and need to notify this clinic when they obtain pain medications from other providers. The patient is to bring their pain medications to each and every office visit for pill counts to monitor compliance for their safety. The patient is subject to periodic urine drug testing at the discretion of the provider as well as state and federal regulations. The patient was warned of the risks and benefits of taking opioid pain medication, the risk of addiction, the risk of withdrawal and the differences. Not available 01/17/2025 08:01:29 Reason for Referral None Reported. Problems Name Problem SNOMED Code Status Onset Date Resolution Date Notes Provider Name and Address Organization Details Recorded Time Mixed hyperlipide soha 306714339 Active 2021 Ade Garza NP [facility],[address], [place], [address], [place] - [facility] - [facility] & [place] 2 11:20:45 Acquired hypothyroid ism 207396566 Active 2021 Ade Garza NP [facility] [employer] [facility],[address], [place], [address], [place] [facility] [place] [facility] & [place] 2 11:20:59 Gastroesoph ageal reflux disease without esophagitis 830245137 Active 2021 Ade Garza NP [facility],[address], [place], [address], [place] - [place] & [place] 2 11:24:12 Bipolar disorder 62908288 Active 2021 Ade Garza NP [facility],[address], [place], [address], [place] & [place] 2 11:24:56 Fatigue 46351803 Active 2021 Ade Garza NP [facility],[address], [place], [address], [place] & [place] 2 11:30:42 Blood glucose outside reference range 021135108 Active 2021 Ade Garza NP [facility],[address], [place], [address], [place] & [place] 2 11:31:03 Carpal tunnel syndrome 97800805 Active 2021 Ade Garza NP [facility],[address], [place], [address], [place] & [place] 2 11:31:31 Allergic rhinitis 12780174 Active 2021 Ade Garza NP [address], [place], [address], [place] & [place] 2 11:32:00 Carpal tunnel syndrome of left wrist 0774546862170 02 Active 2022 Nikki Mcfarland null, [place] & [place] 3 17:23:52 Cough 25044013 Active 2022 Raegan Ye null, [place] & [place] 3 08:20:03 Bilateral sacroiliiti s 3435766566143 9102 Active 2022 Kelin Garcia null, [place] & [place] 3 14:35:54 Spinal stenosis of lumbar region 34254399 Active 2022 Kelin Garcia [place] & [place] 3 14:35:55 Myofascial pain 716293156 Active 2022 Kelin Garcia null, [place] & [place] 3 14:35:56 Lumbar spondylosis 204936780 Active 2022 Kelin Garcia null, [place] & [place] 3 14:35:58 Neuropathy 279940679 Active 2022 Kelin Garcia null[place] & [place] 3 14:36:17 Acute cystitis 85325494 Active 2022 Ade Garza NP [address] [facility],[address], [place], [address], [place] & [place] 3 10:18:31 Hypokalemia 14424831 Active 2022 Ade Garza NP [address], [place], [address], [place] & [place] 3 10:18:54 Acute pyelonephri tis 70453586 Active 2022 Ade Garza NP [facility] [address], [place], [address], [place] & [place] 3 10:23:14 Low back pain 571068440 Active 2022 Griselda Hanna null, [place] & [place] 3 09:47:18 Obstructive sleep apnea syndrome 87457474 Active 2023 Ade Garza NP [facility] [address], [place], [address], [place] & [place] 4 16:20:53 Daytime hypersomnia 8916894059870 2 Active 2023 Ade Garza NP [facility] [employer],[address], [place], [address], [place] & [place] 4 10:48:20 Herpes zoster 4815399 Active 2023 Fanta Rodriguez PA-C [facility] [employer],[address], [place], [address], [place] & [place] 4 14:32:32 Cellulitis 453968460 Active 2023 Fanta Rodriguez PA-C [facility] [employer],[address], [place], [address], [place] & [place] 4 14:32:42 Lump in lower outer quadrant of left breast 3305362651869 05 Active 2023 Fanta Rodriguez PA-C [facility] [employer],[address], [place], [address], [place] & [place] 4 14:33:38 Lesion of breast 554050340 Active 2023 Ade Garza NP [facility] [employer],[address], [place], [address], [place] [facility] [facility] & [place] 4 14:33:57 Pain in right lower limb 712916092 Active 2023 Ade Garza NP [address] [facility],[address], [address] [place] [address] [facility] & [place] 4 16:22:13 Problem Notes None recorded. Procedures Surgical History Date Name Laterality Status Provider Name and Address Organization Details Recorded Time 07/06/20 Appendectomy completed sara belcher [facility] & [place] 08/08/2022 11:55:54 section completed Vanessa Dior [facility] & [place] 07/26/2022 11:15:08 Gallbladder Surgery completed Vanessa Dior [facility] & [place] 07/26/2022 11:15:15 Carpal tunnel surgery completed Vanessa Dior [facility] & [place] 07/26/2022 11:15:43 Imaging Results None recorded. Procedure Notes None recorded. Medical Equipment None Reported. Allergies Allergen ID Allergen Name Allergen Category Reaction Reaction Severity Criticality Documentation Date Start Date Code Code System Note Provider Name and Address Organization Details Recorded Time 16568 shellfish derived food,medi cation swelling severe Not available 07/26/2022 03848 UNK [facility] [place] 2 11:12:26 40518 Product containin g penicilli n (product) medicatio n rash mild Not available 07/26/2022 02245 8001 SNOMED [facility] [place] 2 11:12:44 31788 codeine medicatio n itching rash mild mild Not available 07/26/2022 2670 RxNorm [facility] [place] 2 11:13:15 89907 vancomyci n medicatio n dyspnea headache moderate moderate Not available 07/26/2022 95415 RxNorm Vanessa Dior [facility] & [place] 2 11:14:01 Medications Name Sig Start Date [...] TAKE ONE TABLET BY MOUTH EVERY DAY 06/07 /2023 completed Not Available Not Available Not Available [...] Updated DateTime 5 154.94 cm 43.8 kg/m2 578814. 71 g 97.2 [degF] 100 % 100 % 68 /min 148 mm[Hg] 73 mm[Hg] Kristi Phillips [facility] & [place] 5 09:56:52 Social History Question Answer Notes LastModified by Maichang Details LastModified Time Tobacco Smoking Status Never Smoker Vanessa Dior null, [facility] & [place] 07/26/2022 11:14:53 What Is Your Level Of Caffeine Consumption? Occasional API-13 Information not available 11/13/2023 Sex: Unknown Functional Status Question Answer Note LastModified by Maichang Details LastModified Time Do you use any illicit or recreational drugs? No Information not available 07/26/2022 What is your level of alcohol consumption? None Information not available 07/26/2022 Mental Status None recorded. Family History Relationship Description Onset Age of this Age Resolved Age Notes LastModified by Organization Details LastModified Time Father Heart disease [email or web address] Not available 2021 11:14:43 Medical History Condition Response Hyperthyroidism Y Anxiety Disorder Y High Cholesterol Y Psychiatric/Mental Health Condition Y Headaches Y Kidney or Bladder Problems Y Back Problems Y Hypertension Y Gynecological HistoryNo gynecological history recorded. Obstetrics History GPAL:G 0 P 0 0 0 0 Immunizations Vaccine Type Date Status Note Provider Thanh chery and Address Organization Details Recorded Time COVID-19, mRNA, LNP-S, PF, 100 mcg/0.5mL dose or 50 mcg/0.25mL dose 05/15/2021 completed Vanessa Dior null, [place] & [place] 07/26/2022 11:11:52 COVID-19, mRNA, LNP-S, PF, 100 mcg/0.5mL dose or 50 mcg/0.25mL dose 03/22/2021 completed Vanessa Dior null, [place] - [place] & [place] 07/26/2022 11:11:52 Tdap 06/30/2023 completed Alysia Sahu null, [place] & [place] 02/23/2024 15:48:32 Past Encounters Encounter ID Performer Location Encounter Start Date Encounter Closed Date Diagnosis/Indication Diagnosis SNOMED-CT Code Diagnosis ICD10 Code Diagnosis Note [id number] KYLAH LESLIE PA-C [facility] [address] [facility] [address] [place] [address] 01/13/2025 09:45:58 01/13/2025 10:21:31 Low back pain 299046582 M54.50 Bilateral sacroiliac joint pain 4673523292 6225605 M53.3 Lumbar spondylosis 51065 0009 M47.816 Bilateral sacroiliitis 2031953924 6140495 M46.1 - The patient cancelled the previously [...] ly targeted the pain pattern. Myofascial pain 28421370 9 M79.10 - Refill Cyclobenza eduardo 5 mg Q12 hours prn Spinal wilbert nosis of lumbar region 73462604 M99.53 M48.061 - The patient complains of [...] ortho spine for further evaluation . Neuropathy 546290355 G62 .9 - Refill Gabapentin 600 mg Q12 hours prn Pain of le ft shoulder joint 9931307876 2766908 M25.512 - The patient notes that left shoulder pain is improving. I suspect a rotator cuff mechanism is involved.- The patient previously had an ortho consult.- The patient hasn't started PT yet due to transporta tion issues.- If pain worsens, I will likely schedule a left subacromia l bursa injection. Lumbar radiculopathy 128 841480 M54.16 Degenerati on of lumbar intervertebral disc 62893725 M51.369 Health Concerns Section Related Observation LastModified by Organization Detai ls LastModified Time None Recorded Concern Status LastModified by Organization Details LastModified Time None Recorded Payers Encounter Date Sequence Insurance Name Policy Number Policy Braxton Covered Member ID Braxton Member ID Guarantor Name 01/13/2025 2 [employer] (MEDICAID HMO) Martha Hernandez [id number] Martha Hernandez 01/13/2025 1 [employer] - [employer]US (MEDICARE REPLACEMENT HMO) Martha Hernandez [id number] Martha Hernandez Notes Date Note Type Note Provider Name and Address Organization Details Recorded Time 01/13/2025 text/html Ms. Hernandez was referred by [...] Today the pain level is a 6/10. KYLAH LESLIE PA-C [address], [place], [address], [facility] - [facility] - [place] & [place] 01/17/2025 08:15:22 OBGyn Episode No OBEpisode recorded.
[2025-02-17 10:07] LABS: Anion Gap 9.1 mEq/L (5-15); Blood Urea Nitrogen 13 mg/dl (7-17); Calcium 9.5 mg/dl (8.4-10.2); Carbon Dioxide 31 mmol/L (22.0-30.0); Chloride 102 mmol/L (98-107); Estimated Glomerular Filt Rate 61 ml/min (>60); GFR (African American) 74 ML/MIN (>60); Glucose 114 mg/dl (74-100); Potassium 4.1 mmoL/L (3.5-5.1); Sodium 138 mmol/L (136-145)
[2025-02-18 08:15] LABS: Lithium (Eskalith(R)) 1.2 mmol/L (0.5-1.2)
== END 2025-02-17 23:59 | disposition home or self-care (01) ==
PROVIDERS: PCP Family Medicine; Visit Provider Nurse Practitioner Psychiatric/Mental Health
DX: F31.31 Bipolar disorder, current episode depressed, mild (principal); Z79.899 Other long term (current) drug therapy
CPT/HCPCS: 36415; 80048; 80178

== ENCOUNTER 2025-08-23 15:34 | Outpatient (CLI) | payer MEDICARE, SELFPAY ==
[2025-08-23 17:13] LABS: Hematocrit 39.6 % (37.0-47.0); Hemoglobin 12.8 g/dL (12.2-16.2); Immature Granulocytes % 0.5 %; Mean Corpuscular HGB Conc 32.3 g/dL (31.8-35.4); Mean Corpuscular Hemoglobin 29.0 pg (27.0-31.2); Mean Corpuscular Volume 89.8 fl (81-99); Nucleated Red Blood Cells % 0 %; Platelet Count 319 K/mm3 (142-424); Red Blood Count 4.41 M/mm3 (4.20-5.40); Red Cell Distribution Width-SD 45.4 fL; White Blood Count 11.1 K/mm3 (4.8-10.8)
[2025-08-23 18:02] LABS: Alanine Aminotransferase 71 U/L (12-78); Albumin Level 4.6 g/dl (3.5-5.0); Albumin/Globulin Ratio 1.6 (1.1-1.8); Alkaline Phosphatase 93 U/L (38-126); Anion Gap 11.1 mEq/L (5-15); Aspartate Amino Transferase 65 U/L (14-36); Bilirubin,Total 0.6 mg/dl (0.2-1.3); Blood Urea Nitrogen 7 mg/dl (7-17); Calcium 10.9 mg/dl (8.4-10.2); Carbon Dioxide 31 mmol/L (22.0-30.0); Chloride 100 mmol/L (98-107); Cholesterol 236 mg/dl (140-200); Creatinine,Serum 1.00 mg/dl (0.52-1.04); Estimated Glomerular Filt Rate 61 ml/min (>60); GFR (African American) 74 ML/MIN (>60); Globulin 2.8 g/dL (1.3-3.2); Glucose 121 mg/dl (74-100); HDL Cholesterol 34 mg/dl (40-60); Potassium 4.1 mmoL/L (3.5-5.1); Sodium 138 mmol/L (136-145); Total Protein,Serum 7.4 g/dl (6.3-8.2); Triglycerides 348 mg/dl (30-150)
[2025-08-23 18:32] LABS: Thyroid Stimulating Hormone 5.50 uIU/mL (0.465-4.68)
== END 2025-08-23 23:59 | disposition home or self-care (01) ==
LOC: LAB 15:35
PROVIDERS: PCP Family Medicine; Visit Provider Nurse Practitioner Psychiatric/Mental Health
DX: F31.31 Bipolar disorder, current episode depressed, mild (principal); Z51.81 Encounter for therapeutic drug level monitoring
CPT/HCPCS: 36415; 80053; 80061; 80178; 84443; 85025